=== PATIENT | female | born 1995 | race American Indian/Alaskan Native ===

== ENCOUNTER 2020-07-22 10:09 | Emergency (ER) | payer OTHER, MEDICAID, SELFPAY ==
[2020-07-22] VITALS (7 sets, daily range): BP systolic 105–123; BP diastolic 56–66; PULSE 79–129; RESP 18; TEMP 37.7–38.7; O2SAT 96–97; BMI 21.1
[2020-07-22] MEDS: KETOROLAC 60 MG/2 ML VIAL 15 MG IV (10:47)
[2020-07-22] MEDS: SODIUM CHLORIDE 0.9% 1,000 ML 1000 ML IV (10:47)
[2020-07-22 10:48] LABS: Add Manual Diff / Slide Review NO; Basophils Absolute Auto 0 /uL (0-100); Basophils Percent Auto 0.1 % (0-2); Eosinophils Absolute Auto 0 /uL (0-450); Hematocrit 39.3 % (36-46); Lymphocytes Absolute Auto 700 /uL (1100-4500); Lymphocytes Percent Auto 5.9 % (25-40); Mean Corpuscular HGB Conc 35.7 % (30-36); Mean Corpuscular Hemoglobin 31.1 PG (26-34); Mean Corpuscular Volume 87.1 fL (80-100); Monocytes Absolute Auto 1100 /uL (0-900); Neutrophils Absolute Auto 10100 /uL (1500-7000); Platelet Count 164 X10^3/uL (150-400); Red Blood Cell Count 4.51 X10^6/uL (4.0-5.2); Red Cell Distribution Width 12.5 % (11.6-14.8); White Blood Cell Count 11.9 X10^3/uL (4.5-11.0)
[2020-07-22 11:04] LABS: Bacteria Urine Few (2-10); Culture Indicated Urine Specimen Cultured; RBC Urine 5-10/HPF (0-5/HPF); Squamous Epithelial Cell Urine 0-1 /HPF (0-5/HPF); WBC Urine 10-30/HPF (0-5/HPF)
[2020-07-22 11:05] LABS: Alanine Aminotransferase 15 IU/L (<35); Albumin 4.4 g/dL (3.5-5.0); Albumin Globulin Ratio 1.4 (1.0-2.8); Alkaline Phosphatase 67 U/L (38-126); Aspartate Aminotransferase 23 IU/L (14-36); Blood Urea Nitrogen 9 mg/dL (7-17); Calcium 8.7 mg/dL (8.4-10.2); Carbon Dioxide 26 mmol/L (22-32); Chloride 103 mmol/L (98-107); Estimated Glomerular Filt Rate > 60.0 mL/min (>60); Globulin 3.2 g/dL (1.7-4.1); Glucose 133 mg/dL (70-100); HEMOLYSIS < 15 (0-50); Potassium 3.3 mmol/L (3.4-5.1); Sodium 134 mmol/L (137-145); Total Protein 7.6 g/dL (6.3-8.2)
--- NOTE | 2020-07-22 11:12 | ED.FEMALEGU ---
HPI - Female Genitourinary General Chief complaint: Urogenital-Female Stated complaint: bladder infection/UTI/fever 2 days/vomiting Time Seen by Provider: 07/22/20 10:31 Source: patient Mode of arrival: Ambulatory Limitations: no limitations History of Present Illness HPI Narrative: Patient is a 24-year-old female who presents with fever and bilateral flank pain. She says last week she started having painful frequent urination has progressed to back pain and fever. She says she developed a fever a few days ago. She has no radiation of pain. MD Complaint: dysuria and UTI Related Data Previous Rx's Medication Instructions Recorded sulfamethoxazole-trimethoprim 1 tab PO BID 7 Days #14 tab 07/22/20 [Bactrim DS] Allergies Allergy/AdvReac Type Severity Reaction Status Date / Time No Known Drug Allergies Allergy Verified 07/22/20 11:43 Review of Systems Review of Systems ROS Unobtainable: All systems reviewed & are unremarkable except as noted in HPI and below Constitutional Constitutional: Reports body ache(s), Reports chills, Reports fatigue and Reports fever(s) Eyes Eyes: Denies change in vision, Denies eye discharge, Denies irritation and Denies loss of vision Cardiovascular Cardiovascular: Denies chest pain, Denies irregular heart rhythm, Denies lightheadedness, Denies palpitations, Denies dyspnea, Denies dyspnea on exertion and Denies orthopnea Respiratory Respiratory: Denies cough, Denies dyspnea, Denies dyspnea on exertion and Denies wheezing Gastrointestinal Gastrointestinal: Denies abdominal pain, Denies change in bowel habits, Denies diarrhea, Denies nausea and Denies vomiting Genitourinary Genitourinary: Reports as per HPI Genitourinary: Reports as per HPI Musculoskeletal Musculoskeletal: Reports back pain, Reports myalgias and Reports myalgias Integumentary/Breasts Skin/Breast: Denies pruritus, Denies erythema, Denies rash and Denies wounds Neurologic Neurologic: Denies loss of vision Endocrine Endocrine: Reports fatigue and Denies palpitations Allergic/Immunologic Allergic/Immunologic: Denies wheezing Patient History alcohol intake frequency: holidays/special occasions only Substance Use Type: marijuana Exam Initial Vital Signs Initial Vital Signs: Vital Signs Temperature 101.7 F H 07/22/20 10:22 Pulse Rate 129 H 07/22/20 10:22 Respiratory Rate 18 07/22/20 10:22 Blood Pressure 123/66 07/22/20 10:22 Pulse Oximetry 96 07/22/20 10:22 GENERAL: Well-appearing, well-nourished and in no acute distress. HEENT: Head atraumatic,EOMI, pupils reactive, face symmetric, moist mucous membranes CARDIOVASCULAR: Tachycardic regular rhythm without murmurs, rubs or gallops. RESPIRATORY: Breath sounds equal bilaterally, no wheezes rales or rhonchi. ABDOMEN: Soft, nontender. Normoactive bowel sounds all 4 quadrants. No guarding or rebound. : Bilateral CVA tenderness EXTREMITIES: Normal range of motion, no clubbing or edema. Neurovascularly intact NEUROLOGICAL: Alert and oriented x4.Normal gait and speech. SKIN: Warm, dry, no laceration, no petechiae, no rashes or lesions. Course Orders Ordered: ED Orders 07/22/20 10:20 Urine Culture Stat Urine Microscopic Stat 07/22/20 10:30 Complete Blood Count AUTO DIFF Stat Comprehensive Metabolic Panel Stat Lactate (Lactic Acid) Stat Procalcitonin Stat 07/22/20 11:55 Blood Culture Stat Discontinued Medications Sodium Chloride (Normal Saline 0.9%) 1,000 mls @ 1,000 mls/hr IV BOLUS ONE Stop: 07/22/20 11:30 Last Infusion: 07/22/20 11:42 Dose: 0 mls/hr Documented by: JUAN PABLO Admin: 07/22/20 10:47 Dose: 1,000 mls/hr Documented by: CHA Ceftriaxone Sodium/Dextrose (Rocephin) 1 gm in 50 mls @ 100 mls/hr IV NOW ONE Stop: 07/22/20 11:45 Last Infusion: 07/22/20 12:17 Dose: 0 mls/hr Documented by: JUAN PABLO Admin: 07/22/20 12:00 Dose: 100 mls/hr Documented by: JUAN PABLO Ketorolac Tromethamine (Ketorolac 60 Mg/2 Ml Vial) 15 mg IV NOW ONE Stop: 07/22/20 10:32 Last Admin: 07/22/20 10:47 Dose: 15 mg Documented by: CHA Vital Signs Vital signs: Vital Signs - 8 hr 07/22/20 10:22 07/22/20 10:34 07/22/20 11:00 Temperature 101.7 F H Pulse Rate 129 H 111 H 107 H Respiratory Rate 18 Blood Pressure 123/66 110/64 118/56 L Pulse Oximetry 96 97 97 07/22/20 11:30 07/22/20 12:00 07/22/20 12:30 Temperature Pulse Rate 85 83 79 Respiratory Rate 18 Blood Pressure 106/58 L 105/57 L 108/60 Pulse Oximetry 96 97 96 07/22/20 12:56 Temperature 99.9 F H Pulse Rate Respiratory Rate Blood Pressure Pulse Oximetry MDM - Female Genitourinary Lab Data Attestation: I reviewed the patient's lab results. Result diagrams: 07/22/20 10:30 07/22/20 10:30 Labs: Lab Results 07/22/20 07/22/20 07/22/20 Range/Units 10:20 10:30 10:30 WBC 11.9 H (4.5-11.0) X10^3/uL RBC 4.51 (4.0-5.2) X10^6/uL Hgb 14.0 (12.0-16.0) g/dL Hct 39.3 (36-46) % MCV 87.1 (80-100) fL MCH 31.1 (26-34) PG MCHC 35.7 (30-36) % RDW 12.5 (11.6-14.8) % Plt Count 164 (150-400) X10^3/uL Neut % (Auto) 85.0 H (50-75) % Lymph % (Auto) 5.9 L (25-40) % [place] % (Auto) 9.0 (3-14) % Eos % (Auto) 0.0 L (2-4) % Baso % (Auto) 0.1 (0-2) % Neut # (Auto) 65983 H (2331-1512) /uL Lymph # (Auto) 700 L (6788-4709) /uL [place] # (Auto) 1100 H (0-900) /uL Eos # (Auto) 0 (0-450) /uL Baso # (Auto) 0 (0-100) /uL Sodium (137-145) mmol/L Potassium (3.4-5.1) mmol/L Chloride (98-107) mmol/L Carbon Dioxide (22-32) mmol/L BUN (7-17) mg/dL Creatinine (0.52-1.04) mg/dL Estimated GFR (>60) mL/min BUN/Creatinine Ratio (6-22) Glucose (70-100) mg/dL Lactate (0.7-2.1) mmol/L Calcium (8.4-10.2) mg/dL Total Bilirubin (0.2-1.3) mg/dL AST (14-36) IU/L ALT (<35) IU/L Alkaline Phosphatase (38-126) U/L Total Protein (6.3-8.2) g/dL Albumin (3.5-5.0) g/dL Globulin (1.7-4.1) g/dL Albumin/Globulin Ratio (1.0-2.8) Procalcitonin 0.27 (<0.5) ng/mL Urine RBC 5-10/hpf H (0-5/HPF) Urine WBC 10-30/hpf H (0-5/HPF) Ur Squamous Epith Cells 0-1 /hpf (0-5/HPF) Urine Bacteria Few (2-10) H (None) Ur Culture Indicated? Specimen cultured 07/22/20 07/22/20 Range/Units 10:30 10:30 WBC (4.5-11.0) X10^3/uL RBC (4.0-5.2) X10^6/uL Hgb (12.0-16.0) g/dL Hct (36-46) % MCV (80-100) fL MCH (26-34) PG MCHC (30-36) % RDW (11.6-14.8) % Plt Count (150-400) X10^3/uL Neut % (Auto) (50-75) % Lymph % (Auto) (25-40) % [place] % (Auto) (3-14) % Eos % (Auto) (2-4) % Baso % (Auto) (0-2) % Neut # (Auto) (4270-1564) /uL Lymph # (Auto) (8815-3154) /uL [place] # (Auto) (0-900) /uL Eos # (Auto) (0-450) /uL Baso # (Auto) (0-100) /uL Sodium 134 L (137-145) mmol/L Potassium 3.3 L (3.4-5.1) mmol/L Chloride 103 (98-107) mmol/L Carbon Dioxide 26 (22-32) mmol/L BUN 9 (7-17) mg/dL Creatinine 0.75 (0.52-1.04) mg/dL Estimated GFR > 60.0 (>60) mL/min BUN/Creatinine Ratio 12.0 (6-22) Glucose 133 H (70-100) mg/dL Lactate 1.0 (0.7-2.1) mmol/L Calcium 8.7 (8.4-10.2) mg/dL Total Bilirubin 2.0 H (0.2-1.3) mg/dL AST 23 (14-36) IU/L ALT 15 (<35) IU/L Alkaline Phosphatase 67 (38-126) U/L Total Protein 7.6 (6.3-8.2) g/dL Albumin 4.4 (3.5-5.0) g/dL Globulin 3.2 (1.7-4.1) g/dL Albumin/Globulin Ratio 1.4 (1.0-2.8) Procalcitonin (<0.5) ng/mL Urine RBC (0-5/HPF) Urine WBC (0-5/HPF) Ur Squamous Epith Cells (0-5/HPF) Urine Bacteria (None) Ur Culture Indicated? Point of Care Testing Test Results Negative Urine Dip Bedside Urine Glucose Negative Bedside Urine Bilirubin - Negative Bedside Urine Ketone +++ 80 Urine Specific [place] 1.015 Bedside Urine Occult Blood ++ Bedside Urine pH 6.0 Bedside Urine Protein + 30 Bedside Urine Urobilinogen - Negative Bedside Urine Nitrite - Negative Bedside Urine Leukocytes + 70 Esterase MDM Narrative Medical decision making narrative: Patient initially tachycardic and febrile needing as sepsis and SIRS criteria. She does have UTI and likely pyelonephritis. Heart rate improved with fever control and IV fluids. She is given 1 dose of IV antibiotics. She has a normal lactate and a mildly elevated procalcitonin. At this time she overall appears well and can be managed outpatient. Discharge Plan Departure Patient Disposition: Home Clinical Impression: Urinary tract infection Qualifiers: Urinary tract infection type: acute pyelonephritis Qualified Code(s): N10 - Acute pyelonephritis Instructions: DI for Kidney Infection Activity Restrictions/Additional Instructions: *You have been diagnosed with kidney infection *What to do: You have a kidney infection. Stay hydrated and fever control with Tylenol and or ibuprofen *Continue to take medications as directed Tylenol 1000 mg every 6 hours do not exceed more than 4000 mg in 24 hours Ibuprofen 800 mg every 8 hours Bactrim 1 tablet twice a day for 7 days *Follow up with your primary care provider in 2-3 days *Return to ER if you should have not able to keep fluids in, increasing pain, fever not controlled, confusion or any new, worsening or concerning symptoms Prescriptions: New sulfamethoxazole-trimethoprim [Bactrim DS] 800-160 mg tablet 1 tab PO BID 7 Days Qty: 14 RF: 0
[2020-07-22 11:17] LABS: Procalcitonin 0.27 ng/mL (<0.5)
[2020-07-22] MEDS: CEFTRIAXONE 1 GM/50 ML FROZ.PIGGY IV (12:00)
[2020-07-23 08:04] LABS: Enterococcus species Not Detected (Not Detect); Listeria monocytogenes Not Detected (Not Detect); Staphylococcus species Not Detected (Not Detect)
[2020-07-23 08:05] LABS: Acinetobacter baumannii Not Detected (Not Detect); Candida albicans Not Detected (Not Detect); Candida glabrata Not Detected (Not Detect); Candida krusei Not Detected (Not Detect); Candida parapsilosis Not Detected (Not Detect); Candida tropicalis Not Detected (Not Detect); E. coli Detected (Not Detect); Enterobacter cloacae complex Not Detected (Not Detect); Enterobacteriaceae species Detected (Not Detect); Haemophilus influenzae Not Detected (Not Detect); KPC (carbapenem-resist gene) Not Detected (Not Detect); Neisseria meningitidis Not Detected (Not Detect); Proteus species Not Detected (Not Detect); Pseudomonas aeruginosa Not Detected (Not Detect); Serratia marcescens Not Detected (Not Detect); Streptococcus agalactiae (Gr B Not Detected (Not Detect); Streptococcus pneumonia Not Detected (Not Detect); Streptococcus pyogenes (Gr A) Not Detected (Not Detect); Streptococcus species Not Detected (Not Detect)
== END 2020-07-22 12:56 | disposition home or self-care (01) ==
PROVIDERS: Emergency Provider Emergency Medicine; Family Provider Pediatrics
DX: N39.0 Urinary tract infection, site not specified (principal); R10.9 Unspecified abdominal pain; N10 Acute pyelonephritis
CPT/HCPCS: 36415; 80053; 81003; 81015; 81025; 83605; 84145; 85025; 87040; 87077; 87086; 87150; 87205; 99281; J1885

== ENCOUNTER 2020-07-23 12:21 | Observation (INO) | payer OTHER, MEDICAID, SELFPAY ==
[2020-07-23] VITALS (17 sets, daily range): BP systolic 106–129; BP diastolic 53–67; PULSE 62–103; RESP 14–16; TEMP 36.6–37.7; O2SAT 96–100; BMI 23.6
[2020-07-23 12:54] LABS: Add Manual Diff / Slide Review NO; Basophils Absolute Auto 0 /uL (0-100); Basophils Percent Auto 0.3 % (0-2); Eosinophils Absolute Auto 0 /uL (0-450); Hematocrit 40.4 % (36-46); Hemoglobin 14.4 g/dL (12.0-16.0); Lymphocytes Absolute Auto 1200 /uL (1100-4500); Lymphocytes Percent Auto 11.2 % (25-40); Mean Corpuscular HGB Conc 35.6 % (30-36); Mean Corpuscular Hemoglobin 31.2 PG (26-34); Mean Corpuscular Volume 87.6 fL (80-100); Monocytes Absolute Auto 1100 /uL (0-900); Monocytes Percent Auto 10.4 % (3-14); Neutrophils Absolute Auto 8100 /uL (1500-7000); Neutrophils Percent Auto 78.1 % (50-75); Platelet Count 141 X10^3/uL (150-400); Red Blood Cell Count 4.61 X10^6/uL (4.0-5.2); Red Cell Distribution Width 12.4 % (11.6-14.8); White Blood Cell Count 10.3 X10^3/uL (4.5-11.0)
[2020-07-23] MEDS: MORPHINE 4 MG/ML INJ IV (13:03)
[2020-07-23] MEDS: SODIUM CHLORIDE 0.9% 1,000 ML 1000 ML IV (13:03)
[2020-07-23] MEDS: ONDANSETRON 4 MG/2 ML INJ IV ×2 (13:03→23:34)
[2020-07-23 13:04] LABS: Alanine Aminotransferase 15 IU/L (<35); Albumin 4.2 g/dL (3.5-5.0); Albumin Globulin Ratio 1.3 (1.0-2.8); Alkaline Phosphatase 58 U/L (38-126); Aspartate Aminotransferase 21 IU/L (14-36); Bilirubin Total 1.9 mg/dL (0.2-1.3); Blood Urea Nitrogen 7 mg/dL (7-17); Calcium 8.9 mg/dL (8.4-10.2); Carbon Dioxide 28 mmol/L (22-32); Chloride 105 mmol/L (98-107); Estimated Glomerular Filt Rate > 60.0 mL/min (>60); Globulin 3.3 g/dL (1.7-4.1); Glucose 108 mg/dL (70-100); HEMOLYSIS < 15 (0-50); Lactate (Lactic Acid) 1.2 mmol/L (0.7-2.1); Magnesium 2.3 mg/dL (1.6-2.3); Potassium 3.2 mmol/L (3.4-5.1); Sodium 139 mmol/L (137-145); Total Protein 7.5 g/dL (6.3-8.2)
[2020-07-23 13:19] LABS: Procalcitonin 0.41 ng/mL (<0.5)
[2020-07-23 13:39] LABS: Bacteria Urine Few (2-10); Culture Indicated Urine Specimen Cultured; Mucus Urine 1+ (Negative); RBC Urine 1-5/HPF (0-5/HPF); Squamous Epithelial Cell Urine 1-5 /HPF (0-5/HPF); WBC Urine 5-10/HPF (0-5/HPF)
[2020-07-23 13:42] LABS: COVID19 -Nasal RAPID Negative (Negative)
--- NOTE | 2020-07-23 13:47 | ED.RECABL ---
HPI - Recheck/Abnormal Lab/Rx <ASHLY Chamberlain - Last Filed: 07/23/20 15:44> General Chief Complaint: Recheck/Abnormal Lab/Rx Stated Complaint: abnormal bloodwork Time Seen by Provider: 07/23/20 12:29 Source: patient Mode of arrival: Ambulatory Limitations: no limitations History of Present Illness HPI narrative: The patient is a 24-year-old female with no pertinent medical history presents with a chief complaint of an abnormal lab. She was seen here yesterday and diagnosed with pyelonephritis. She states she developed urinary tract comes in the dysuria urgency and frequency approximately 7 days ago. About 3 days ago she started developing fever muscle aches and chills. She has seen and evaluated in this emergency department yesterday, given IV Rocephin and IV fluids. She was noted to have a blood culture positive for E coli, so she was called back to the emergency department. She states that her flank pain, muscle aches and chills have worsened since yesterday. After she was discharged yesterday she was vomiting repeatedly and still complains of nausea this morning. She states that her flank pain is worse on the left side than on the right side Related Data Allergies Allergy/AdvReac Type Severity Reaction Status Date / Time No Known Drug Allergies Allergy Verified 07/22/20 11:43 Review of Systems <ASHLY Chamberlain - Last Filed: 07/23/20 15:44> Review of Systems Narrative: GENERAL: Denies chills, fatigue, malaise, fever, sweats. HEENT: Denies sinus pain, ear pain, sore throat, difficulty swallowing, dizziness. RESPIRATORY: Denies dyspnea, cough, wheezing, hemoptysis, sputum. CARDIOVASCULAR: Denies chest pain, palpitations, orthopnea, edema, GASTROINTESTINAL: See HPI : See HPI MUSCULOSKELETAL: denies weakness, joint pain, or bony pain SKIN: Denies rash, skin lesions, or other NEUROLOGIC: Denies weakness, headache, numbness, change in speech, confusion, seizures, incoordination. PSYCHIATRIC: No concerning psychosocial issues. 12 point review of systems is negative except for those stated above Patient History <ASHLY Chamberlain - Last Filed: 07/23/20 15:44> Medical History (Updated 07/23/20 @ 18:43 by Jasmyne Looney DO) No pertinent past medical history Surgical History (Updated 07/23/20 @ 18:43 by Jasmyne Looney DO) No pertinent past surgical history Family History (Updated 07/23/20 @ 18:44 by Jasmyne Looney DO) Father Diabetes mellitus Mother Healthy adult Brother Healthy adult Sister Healthy adult Social History household members: significant other Smoking Status: Never smoker Smoking Status: Never smoker alcohol intake frequency: holidays/special occasions only Substance Use Type: marijuana Exam <ASHLY Chamberlain - Last Filed: 07/23/20 15:44> Narrative Exam Narrative: GENERAL: This is a well-nourished, well-developed patient, in no acute distress appears fatigued HEAD: Atraumatic. Normocephalic. No temporal or scalp tenderness. EYES: Pupils equal round and reactive. Extraocular motions intact. No scleral icterus. No injection or drainage. ENT: Nose without bleeding, purulent drainage or septal hematoma. Wearing mask. Airway patent. NECK: Trachea midline. No JVD or lymphadenopathy. Supple, nontender, no meningeal signs. CARDIOVASCULAR: Regular rate and rhythm RESPIRATORY: Clear to auscultation. Breath sounds equal bilaterally. No wheezes, rales, or rhonchi. No cough. No increased respiratory effort. No accessory muscle use. GASTROINTESTINAL: Abdomen soft, non-tender, nondistended. No hepato-splenomegaly, or palpable masses. No guarding. Active bowel sounds all quadrants EXTREMITIES: No clubbing, cyanosis, or edema. No joint tenderness, effusion, or edema noted. BACK: Nontender without deformity or crepitance. CVA tenderness noted bilaterally, left worse than right NEURO: AOx3. SKIN: No rash or erythema on visible skin Initial Vital Signs Initial Vital Signs: Vital Signs Temperature 99.7 F H 07/23/20 12:37 Pulse Rate 99 H 07/23/20 12:37 Respiratory Rate 16 07/23/20 12:37 Blood Pressure 129/67 07/23/20 12:37 Pulse Oximetry 100 07/23/20 12:37 <Anamaria Hobbs DO - Last Filed: 07/24/20 07:14> Initial Vital Signs Initial Vital Signs: Vital Signs Temperature 99.7 F H 07/23/20 12:37 Pulse Rate 99 H 07/23/20 12:37 Respiratory Rate 16 07/23/20 12:37 Blood Pressure 129/67 07/23/20 12:37 Pulse Oximetry 100 07/23/20 12:37 Scores <ASHLY Chamberlain - Last Filed: 07/23/20 15:44> GCS [place] coma scale eye opening: Spontaneous [place] coma scale verbal response: Orientated [place] coma scale motor response: Obey commands [place] coma scale total score: 15 Course <ASHLY Chamberlain - Last Filed: 07/23/20 15:44> Orders Ordered: Acetaminophen (Acetaminophen 325 Mg Tablet) 650 mg PO Q6HR PRN PRN Reason: Fever/Mild Pain (1-3) Last Admin: 07/23/20 21:17 Dose: 650 mg Documented by: ANGELIA Al Hydrox/Mg Hydrox/Simethicone (Mag Hydrox/Alum/Simeth 30 Ml Udc) 30 ml PO Q6HR PRN PRN Reason: Dyspepsia Bisacodyl (Bisacodyl 10 Mg Supp) 10 mg [place] DAILY PRN PRN Reason: Constipation Calcium Carbonate (Calcium Carbonate 500 Mg Tab) 1,000 mg PO Q4HR PRN PRN Reason: Dyspepsia Last Admin: 07/23/20 23:28 Dose: 1,000 mg Documented by: TARIQ Heparin Sodium (Porcine) (Heparin 5,000 Unit/Ml Vial) 5,000 unit SUBCUT BID [facility] Last Admin: 07/23/20 21:17 Dose: Not Given Documented by: ANGELIA Sodium Chloride (Normal Saline 0.9%) 1,000 mls @ 100 mls/hr IV CONT JOESPH Last Admin: 07/24/20 03:01 Dose: 100 mls/hr Documented by: Infusion: 07/24/20 02:26 Dose: 100 mls/hr Documented by: Admin: 07/23/20 16:26 Dose: 100 mls/hr Documented by: MARIA DE JESUS Ceftriaxone Sodium/Dextrose (Rocephin) 2 gm in 50 mls @ 100 mls/hr IV Q24H [facility] Ketorolac Tromethamine (Ketorolac 30 Mg/Ml Vial) 30 mg IV Q6HR PRN PRN Reason: Pain, Mild (1-3) Stop: 07/28/20 16:56 Last Admin: 07/23/20 23:27 Dose: 30 mg Documented by: Admin: 07/23/20 17:38 Dose: 30 mg Documented by: MARIA DE JESUS Magnesium Hydroxide (Magnesium Hydroxide 30 Ml Udc) 30 ml PO DAILY PRN PRN Reason: Constipation Naloxone HCl (Naloxone 0.4 Mg/Ml Vial) 0.2 mg IV Q2MIN PRN PRN Reason: Opiate Reversal Ondansetron HCl (Ondansetron 4 Mg/2 Ml Inj) 4 mg IV Q8HR PRN PRN Reason: Nausea And Vomiting Last Admin: 07/23/20 23:34 Dose: 4 mg Documented by: TARIQ Promethazine HCl (Promethazine 12.5 Mg Supp) 12.5 mg [place] Q6HR PRN PRN Reason: Nausea And Vomiting Tramadol HCl (Tramadol 50 Mg Tablet) 50 mg PO QID PRN PRN Reason: Pain, Moderate (4-6) Discontinued Medications Acetaminophen (Acetaminophen 325 Mg Tablet) 650 mg PO NOW ONE Stop: 07/23/20 14:16 Last Admin: 07/23/20 14:29 Dose: 650 mg Documented by: CHA Sodium Chloride (Normal Saline 0.9%) 1,000 mls @ 1,000 mls/hr IV BOLUS ONE Stop: 07/23/20 13:28 Last Infusion: 07/23/20 15:58 Dose: 100 mls/hr Documented by: Infusion: 07/23/20 15:57 Dose: 100 mls/hr Documented by: Admin: 07/23/20 13:03 Dose: 1,000 mls/hr Documented by: CHA Sodium Chloride (Normal Saline 0.9%) 1,000 mls @ 1,000 mls/hr IV BOLUS ONE Stop: 07/23/20 13:50 Last Infusion: 07/23/20 14:29 Dose: 0 mls/hr Documented by: Admin: 07/23/20 14:28 Dose: 100 mls/hr Documented by: CAH Ceftriaxone Sodium/Dextrose (Rocephin) 1 gm in 50 mls @ 100 mls/hr IV NOW ONE Stop: 07/23/20 14:45 Last Infusion: 07/23/20 15:29 Dose: 0 mls/hr Documented by: Admin: 07/23/20 14:28 Dose: 100 mls/hr Documented by: CHA Ceftriaxone Sodium/Dextrose (Rocephin) 1 gm in 50 mls @ 100 mls/hr IV NOW ONE Stop: 07/23/20 17:27 Last Admin: 07/23/20 17:38 Dose: 100 mls/hr Documented by: MARIA DE JESUS Influenza Virus Vaccine (Influenza Vaccine 0.5 Ml Syringe) 0.5 ml IM .ONCE ONE Stop: 07/23/20 16:24 Last Admin: 07/23/20 17:37 Dose: 0.5 ml Documented by: MARIA DE JESUS Morphine Sulfate (Morphine 4 Mg/Ml Inj) 4 mg IV NOW ONE Stop: 07/23/20 12:52 Last Admin: 07/23/20 13:03 Dose: 4 mg Documented by: CHA Ondansetron HCl (Ondansetron 4 Mg/2 Ml Inj) 4 mg IV NOW ONE Stop: 07/23/20 12:52 Last Admin: 07/23/20 13:03 Dose: 4 mg Documented by: CHA Potassium Chloride (Potassium Chloride 20 Meq Tab) 40 meq PO NOW ONE Stop: 07/23/20 15:58 Last Admin: 07/23/20 17:36 Dose: 40 meq Documented by: MARIA DE JESUS Vital Signs Vital signs: Vital Signs - 8 hr 07/23/20 12:37 07/23/20 13:05 07/23/20 13:07 Temperature 99.7 F H Pulse Rate 99 H 96 H 103 H Respiratory Rate 16 Blood Pressure 129/67 110/57 L Pulse Oximetry 100 96 100 07/23/20 13:09 07/23/20 13:30 07/23/20 14:00 Temperature Pulse Rate 88 85 79 Respiratory Rate Blood Pressure 119/61 114/59 L 121/56 L Pulse Oximetry 100 99 100 07/23/20 14:30 07/23/20 14:57 07/23/20 15:00 Temperature Pulse Rate 80 83 83 Respiratory Rate Blood Pressure 117/62 112/55 L 115/57 L Pulse Oximetry 99 99 99 <Anamaria Hobbs DO - Last Filed: 07/24/20 07:14> Orders Ordered: Acetaminophen (Acetaminophen 325 Mg Tablet) 650 mg PO Q6HR PRN PRN Reason: Fever/Mild Pain (1-3) Last Admin: 07/23/20 21:17 Dose: 650 mg Documented by: ANGELIA Al Hydrox/Mg Hydrox/Simethicone (Mag Hydrox/Alum/Simeth 30 Ml Udc) 30 ml PO Q6HR PRN PRN Reason: Dyspepsia Bisacodyl (Bisacodyl 10 Mg Supp) 10 mg [place] DAILY PRN PRN Reason: Constipation Calcium Carbonate (Calcium Carbonate 500 Mg Tab) 1,000 mg PO Q4HR PRN PRN Reason: Dyspepsia Last Admin: 07/23/20 23:28 Dose: 1,000 mg Documented by: TARIQ Heparin Sodium (Porcine) (Heparin 5,000 Unit/Ml Vial) 5,000 unit SUBCUT BID [facility] Last Admin: 07/23/20 21:17 Dose: Not Given Documented by: ANGELIA Sodium Chloride (Normal Saline 0.9%) 1,000 mls @ 100 mls/hr IV CONT [facility] Last Admin: 07/24/20 03:01 Dose: 100 mls/hr Documented by: Infusion: 07/24/20 02:26 Dose: 100 mls/hr Documented by: Admin: 07/23/20 16:26 Dose: 100 mls/hr Documented by: MARIA DE JESUS Ceftriaxone Sodium/Dextrose (Rocephin) 2 gm in 50 mls @ 100 mls/hr IV Q24H [facility] Ketorolac Tromethamine (Ketorolac 30 Mg/Ml Vial) 30 mg IV Q6HR PRN PRN Reason: Pain, Mild (1-3) Stop: 07/28/20 16:56 Last Admin: 07/23/20 23:27 Dose: 30 mg Documented by: Admin: 07/23/20 17:38 Dose: 30 mg Documented by: MARIA DE JESUS Magnesium Hydroxide (Magnesium Hydroxide 30 Ml Udc) 30 ml PO DAILY PRN PRN Reason: Constipation Naloxone HCl (Naloxone 0.4 Mg/Ml Vial) 0.2 mg IV Q2MIN PRN PRN Reason: Opiate Reversal Ondansetron HCl (Ondansetron 4 Mg/2 Ml Inj) 4 mg IV Q8HR PRN PRN Reason: Nausea And Vomiting Last Admin: 07/23/20 23:34 Dose: 4 mg Documented by: TARIQ Promethazine HCl (Promethazine 12.5 Mg Supp) 12.5 mg [place] Q6HR PRN PRN Reason: Nausea And Vomiting Tramadol HCl (Tramadol 50 Mg Tablet) 50 mg PO QID PRN PRN Reason: Pain, Moderate (4-6) Discontinued Medications Acetaminophen (Acetaminophen 325 Mg Tablet) 650 mg PO NOW ONE Stop: 07/23/20 14:16 Last Admin: 07/23/20 14:29 Dose: 650 mg Documented by: CHA Sodium Chloride (Normal Saline 0.9%) 1,000 mls @ 1,000 mls/hr IV BOLUS ONE Stop: 07/23/20 13:28 Last Infusion: 07/23/20 15:58 Dose: 100 mls/hr Documented by: Infusion: 07/23/20 15:57 Dose: 100 mls/hr Documented by: Admin: 07/23/20 13:03 Dose: 1,000 mls/hr Documented by: CHA Sodium Chloride (Normal Saline 0.9%) 1,000 mls @ 1,000 mls/hr IV BOLUS ONE Stop: 07/23/20 13:50 Last Infusion: 07/23/20 14:29 Dose: 0 mls/hr Documented by: Admin: 07/23/20 14:28 Dose: 100 mls/hr Documented by: CHA Ceftriaxone Sodium/Dextrose (Rocephin) 1 gm in 50 mls @ 100 mls/hr IV NOW ONE Stop: 07/23/20 14:45 Last Infusion: 07/23/20 15:29 Dose: 0 mls/hr Documented by: Admin: 07/23/20 14:28 Dose: 100 mls/hr Documented by: CHA Ceftriaxone Sodium/Dextrose (Rocephin) 1 gm in 50 mls @ 100 mls/hr IV NOW ONE Stop: 07/23/20 17:27 Last Admin: 07/23/20 17:38 Dose: 100 mls/hr Documented by: MARIA DE JESUS Influenza Virus Vaccine (Influenza Vaccine 0.5 Ml Syringe) 0.5 ml IM .ONCE ONE Stop: 07/23/20 16:24 Last Admin: 07/23/20 17:37 Dose: 0.5 ml Documented by: MARIA DE JESUS Morphine Sulfate (Morphine 4 Mg/Ml Inj) 4 mg IV NOW ONE Stop: 07/23/20 12:52 Last Admin: 07/23/20 13:03 Dose: 4 mg Documented by: CHA Ondansetron HCl (Ondansetron 4 Mg/2 Ml Inj) 4 mg IV NOW ONE Stop: 07/23/20 12:52 Last Admin: 07/23/20 13:03 Dose: 4 mg Documented by: CHA Potassium Chloride (Potassium Chloride 20 Meq Tab) 40 meq PO NOW ONE Stop: 07/23/20 15:58 Last Admin: 07/23/20 17:36 Dose: 40 meq Documented by: CWHITE Vital Signs Vital signs: Vital Signs - 8 hr 07/23/20 12:37 07/23/20 13:05 07/23/20 13:07 Temperature 99.7 F H Pulse Rate 99 H 96 H 103 H Respiratory Rate 16 Blood Pressure 129/67 110/57 L Pulse Oximetry 100 96 100 07/23/20 13:09 07/23/20 13:30 07/23/20 14:00 Temperature Pulse Rate 88 85 79 Respiratory Rate Blood Pressure 119/61 114/59 L 121/56 L Pulse Oximetry 100 99 100 07/23/20 14:30 07/23/20 14:57 07/23/20 15:00 Temperature Pulse Rate 80 83 83 Respiratory Rate Blood Pressure 117/62 112/55 L 115/57 L Pulse Oximetry 99 99 99 [facility] - Recheck/Abnormal Lab/Rx <ARNAV Chamberlain - Last Filed: 07/23/20 15:44> Lab Data Result diagrams: 07/24/20 05:24 07/24/20 05:24 Labs: Lab Results 07/23/20 07/23/20 07/23/20 Range/Units 12:40 12:40 12:40 WBC (4.5-11.0) X10^3/uL RBC (4.0-5.2) X10^6/uL Hgb (12.0-16.0) g/dL Hct (36-46) % MCV (80-100) fL MCH (26-34) PG MCHC (30-36) % RDW (11.6-14.8) % Plt Count (150-400) X10^3/uL Neut % (Auto) (50-75) % Lymph % (Auto) (25-40) % [place] % (Auto) (3-14) % Eos % (Auto) (2-4) % Baso % (Auto) (0-2) % Neut # (Auto) (9456-5806) /uL Lymph # (Auto) (5754-6307) /uL [place] # (Auto) (0-900) /uL Eos # (Auto) (0-450) /uL Baso # (Auto) (0-100) /uL Sodium (137-145) mmol/L Potassium (3.4-5.1) mmol/L Chloride (98-107) mmol/L Carbon Dioxide (22-32) mmol/L BUN (7-17) mg/dL Creatinine (0.52-1.04) mg/dL Estimated GFR (>60) mL/min BUN/Creatinine Ratio (6-22) Glucose (70-100) mg/dL Lactate 1.2 (0.7-2.1) mmol/L Calcium (8.4-10.2) mg/dL Magnesium 2.3 (1.6-2.3) mg/dL Total Bilirubin (0.2-1.3) mg/dL AST (14-36) IU/L ALT (<35) IU/L Alkaline Phosphatase (38-126) U/L Total Protein (6.3-8.2) g/dL Albumin (3.5-5.0) g/dL Globulin (1.7-4.1) g/dL Albumin/Globulin Ratio (1.0-2.8) Procalcitonin 0.41 (<0.5) ng/mL Urine RBC (0-5/HPF) Urine WBC (0-5/HPF) Ur Squamous Epith Cells (0-5/HPF) Urine Bacteria (None) Urine Mucus (Negative) Ur Culture Indicated? Urine Test (Negative) COVID-19 PCR (Negative) 07/23/20 07/23/20 07/23/20 Range/Units 12:40 12:40 13:00 WBC 10.3 (4.5-11.0) X10^3/uL RBC 4.61 (4.0-5.2) X10^6/uL Hgb 14.4 (12.0-16.0) g/dL Hct 40.4 (36-46) % MCV 87.6 (80-100) fL MCH 31.2 (26-34) PG MCHC 35.6 (30-36) % RDW 12.4 (11.6-14.8) % Plt Count 141 L (150-400) X10^3/uL Neut % (Auto) 78.1 H (50-75) % Lymph % (Auto) 11.2 L (25-40) % [place] % (Auto) 10.4 (3-14) % Eos % (Auto) 0.0 L (2-4) % Baso % (Auto) 0.3 (0-2) % Neut # (Auto) 8100 H (0358-5030) /uL Lymph # (Auto) 1200 (3149-1230) /uL [place] # (Auto) 1100 H (0-900) /uL Eos # (Auto) 0 (0-450) /uL Baso # (Auto) 0 (0-100) /uL Sodium 139 (137-145) mmol/L Potassium 3.2 L (3.4-5.1) mmol/L Chloride 105 (98-107) mmol/L Carbon Dioxide 28 (22-32) mmol/L BUN 7 (7-17) mg/dL Creatinine 0.78 (0.52-1.04) mg/dL Estimated GFR > 60.0 (>60) mL/min BUN/Creatinine Ratio 9.0 (6-22) Glucose 108 H (70-100) mg/dL Lactate (0.7-2.1) mmol/L Calcium 8.9 (8.4-10.2) mg/dL Magnesium (1.6-2.3) mg/dL Total Bilirubin 1.9 H (0.2-1.3) mg/dL AST 21 (14-36) IU/L ALT 15 (<35) IU/L Alkaline Phosphatase 58 (38-126) U/L Total Protein 7.5 (6.3-8.2) g/dL Albumin 4.2 (3.5-5.0) g/dL Globulin 3.3 (1.7-4.1) g/dL Albumin/Globulin Ratio 1.3 (1.0-2.8) Procalcitonin (<0.5) ng/mL Urine RBC 1-5/hpf (0-5/HPF) Urine WBC 5-10/hpf H (0-5/HPF) Ur Squamous Epith Cells 1-5 /hpf (0-5/HPF) Urine Bacteria Few (2-10) H (None) Urine Mucus 1+ H (Negative) Ur Culture Indicated? Specimen cultured Urine Test (Negative) COVID-19 PCR (Negative) 07/23/20 07/23/20 Range/Units 13:00 13:15 WBC (4.5-11.0) X10^3/uL RBC (4.0-5.2) X10^6/uL Hgb (12.0-16.0) g/dL Hct (36-46) % MCV (80-100) fL MCH (26-34) PG MCHC (30-36) % RDW (11.6-14.8) % Plt Count (150-400) X10^3/uL Neut % (Auto) (50-75) % Lymph % (Auto) (25-40) % [place] % (Auto) (3-14) % Eos % (Auto) (2-4) % Baso % (Auto) (0-2) % Neut # (Auto) (5318-8773) /uL Lymph # (Auto) (4671-4425) /uL [place] # (Auto) (0-900) /uL Eos # (Auto) (0-450) /uL Baso # (Auto) (0-100) /uL Sodium (137-145) mmol/L Potassium (3.4-5.1) mmol/L Chloride (98-107) mmol/L Carbon Dioxide (22-32) mmol/L BUN (7-17) mg/dL Creatinine (0.52-1.04) mg/dL Estimated GFR (>60) mL/min BUN/Creatinine Ratio (6-22) Glucose (70-100) mg/dL Lactate (0.7-2.1) mmol/L Calcium (8.4-10.2) mg/dL Magnesium (1.6-2.3) mg/dL Total Bilirubin (0.2-1.3) mg/dL AST (14-36) IU/L ALT (<35) IU/L Alkaline Phosphatase (38-126) U/L Total Protein (6.3-8.2) g/dL Albumin (3.5-5.0) g/dL Globulin (1.7-4.1) g/dL Albumin/Globulin Ratio (1.0-2.8) Procalcitonin (<0.5) ng/mL Urine RBC (0-5/HPF) Urine WBC (0-5/HPF) Ur Squamous Epith Cells (0-5/HPF) Urine Bacteria (None) Urine Mucus (Negative) Ur Culture Indicated? Urine Test Negative (Negative) COVID-19 PCR Negative (Negative) Point of Care Testing Test Results Negative Urine Dip Bedside Urine Glucose Negative Bedside Urine Bilirubin - Negative Bedside Urine Ketone +++ 80 Urine Specific [place] 1.025 Bedside Urine Occult Blood ++ Bedside Urine pH 6.0 Bedside Urine Protein +/- 15 Bedside Urine Urobilinogen - Negative Bedside Urine Nitrite - Negative Bedside Urine Leukocytes - Negative Esterase Imaging Data CT scan - abdomen/pelvis: Radiologist's Impression: [address] [place] [address] [id number] Scan ReportSigned Patient: Armond Bernard MMR#: [id number]: 1995Acct:[id number]/Sex: 24 / FDate of Service: 07/23/20Loc: EDAccession Number: [id number] Procedure: CT kidney ureter bladder (KUB) Ordering Provider: Ritika Dutton PROCEDURE: CT KIDNEY URETER BLADDER (KUB) INDICATIONS: pylo TECHNIQUE: Noncontrast 5 mm thick sections acquired from the diaphragms to the symphysis. 5 mm thick coronal and sagittal reformats were then performed. For radiation dose reduction, the following was used: automated exposure control, adjustment of mA and/or kV according to patient size. COMPARISON: [facility], CT, CT ABDOMEN PELVIS WITH CONTRAST, 11/24/2017, 0:29. FINDINGS: Image quality: Excellent. Lung bases: Lung bases are clear. Heart size is normal. Urinary system: Both kidneys are normal in size. No kidney stones. No hydronephrosis. There is mild left-sided perinephric inflammation. Both ureters appear non-dilated throughout their expected courses. Bladder wall thickness is normal; no calcified bladder stones. Other solid organs: Liver is normal in size. Gallbladder is unremarkable. Pancreas is normal in contours. Spleen is normal in size. No adrenal nodules. Peritoneum and bowel: Unenhanced bowel loops demonstrate normal wall thickness and caliber. No free fluid or air. Nodes and vessels: No retroperitoneal or mesenteric adenopathy by size criteria. Aorta and inferior vena cava are normal in caliber. Abdominal wall: No ventral hernias. Pelvis: No free pelvic fluid. No inguinal hernias or adenopathy. IUD is noted in place within the uterus. Incidental note of a right-sided Bartholin's cyst, unchanged. Bones: Incidental note of transitional type anatomy at the lumbosacral junction with pseudoarticulation on the right which may be a source of chronic pain. No suspicious bony lesions. No vertebral body compression fractures. IMPRESSION: No urinary tract calcifications or evidence of an obstructive uropathy. There is very mild left perinephric inflammation which may be seen in the setting of an infectious process. Otherwise, no evidence of an acute intra-abdominal/pelvic abnormality. Dictated by: Abilio Munroe D.O. on 07/23/2020 at 14:11 Approved by: Abilio Munroe D.O. on 07/23/2020 at 14:18 [facility] Narrative Medical decision making narrative: The patient is a 24-year-old female who presents to the emergency department with a chief complaint of positive blood cultures from her visit yesterday. She has pyelonephritis, was discharged on Bactrim after given 1 g Rocephin in the emergency department. Today she states her symptoms feel slightly worse, she was vomiting yesterday though not today, worsening CVA tenderness muscle aches and chills. Repeat lab work was done, repeat blood cultures were taken and repeat urinalysis done. Her blood cultures were positive for E coli yesterday. I continued her Rocephin in the emergency department at a 2nd dose at 12:00 p.m.. She was given IV fluids, Zofran morphine and Toradol. Given that she has positive blood cultures, I spoke with Dr. Looney who kindly agreed to admit the patient for inpatient admission pending a CT KUB to rule out obstructive cause a flank pain. This came back negative for any obstructive uropathy, though she does have perinephric Inflammation on the left side. The patient is negative for coronavirus. She states understanding and appreciation for her care, and was flipped to inpatient status. <Anamaria Hobbs, DO - Last Filed: 07/24/20 07:14> Lab Data Labs: Lab Results 07/23/20 07/23/20 07/23/20 Range/Units 12:40 12:40 12:40 WBC (4.5-11.0) X10^3/uL RBC (4.0-5.2) X10^6/uL Hgb (12.0-16.0) g/dL Hct (36-46) % MCV (80-100) fL MCH (26-34) PG MCHC (30-36) % RDW (11.6-14.8) % Plt Count (150-400) X10^3/uL Neut % (Auto) (50-75) % Lymph % (Auto) (25-40) % [place] % (Auto) (3-14) % Eos % (Auto) (2-4) % Baso % (Auto) (0-2) % Neut # (Auto) (9198-8999) /uL Lymph # (Auto) (1398-7552) /uL [place] # (Auto) (0-900) /uL Eos # (Auto) (0-450) /uL Baso # (Auto) (0-100) /uL Sodium (137-145) mmol/L Potassium (3.4-5.1) mmol/L Chloride (98-107) mmol/L Carbon Dioxide (22-32) mmol/L BUN (7-17) mg/dL Creatinine (0.52-1.04) mg/dL Estimated GFR (>60) mL/min BUN/Creatinine Ratio (6-22) Glucose (70-100) mg/dL Lactate 1.2 (0.7-2.1) mmol/L Calcium (8.4-10.2) mg/dL Magnesium 2.3 (1.6-2.3) mg/dL Total Bilirubin (0.2-1.3) mg/dL AST (14-36) IU/L ALT (<35) IU/L Alkaline Phosphatase (38-126) U/L Total Protein (6.3-8.2) g/dL Albumin (3.5-5.0) g/dL Globulin (1.7-4.1) g/dL Albumin/Globulin Ratio (1.0-2.8) Procalcitonin 0.41 (<0.5) ng/mL Urine RBC (0-5/HPF) Urine WBC (0-5/HPF) Ur Squamous Epith Cells (0-5/HPF) Urine Bacteria (None) Urine Mucus (Negative) Ur Culture Indicated? Urine Test (Negative) COVID-19 PCR (Negative) 07/23/20 07/23/20 07/23/20 Range/Units 12:40 12:40 13:00 WBC 10.3 (4.5-11.0) X10^3/uL RBC 4.61 (4.0-5.2) X10^6/uL Hgb 14.4 (12.0-16.0) g/dL Hct 40.4 (36-46) % MCV 87.6 (80-100) fL MCH 31.2 (26-34) PG MCHC 35.6 (30-36) % RDW 12.4 (11.6-14.8) % Plt Count 141 L (150-400) X10^3/uL Neut % (Auto) 78.1 H (50-75) % Lymph % (Auto) 11.2 L (25-40) % [place] % (Auto) 10.4 (3-14) % Eos % (Auto) 0.0 L (2-4) % Baso % (Auto) 0.3 (0-2) % Neut # (Auto) 8100 H (3782-3920) /uL Lymph # (Auto) 1200 (5304-5511) /uL [place] # (Auto) 1100 H (0-900) /uL Eos # (Auto) 0 (0-450) /uL Baso # (Auto) 0 (0-100) /uL Sodium 139 (137-145) mmol/L Potassium 3.2 L (3.4-5.1) mmol/L Chloride 105 (98-107) mmol/L Carbon Dioxide 28 (22-32) mmol/L BUN 7 (7-17) mg/dL Creatinine 0.78 (0.52-1.04) mg/dL Estimated GFR > 60.0 (>60) mL/min BUN/Creatinine Ratio 9.0 (6-22) Glucose 108 H (70-100) mg/dL Lactate (0.7-2.1) mmol/L Calcium 8.9 (8.4-10.2) mg/dL Magnesium (1.6-2.3) mg/dL Total Bilirubin 1.9 H (0.2-1.3) mg/dL AST 21 (14-36) IU/L ALT 15 (<35) IU/L Alkaline Phosphatase 58 (38-126) U/L Total Protein 7.5 (6.3-8.2) g/dL Albumin 4.2 (3.5-5.0) g/dL Globulin 3.3 (1.7-4.1) g/dL Albumin/Globulin Ratio 1.3 (1.0-2.8) Procalcitonin (<0.5) ng/mL Urine RBC 1-5/hpf (0-5/HPF) Urine WBC 5-10/hpf H (0-5/HPF) Ur Squamous Epith Cells 1-5 /hpf (0-5/HPF) Urine Bacteria Few (2-10) H (None) Urine Mucus 1+ H (Negative) Ur Culture Indicated? Specimen cultured Urine Test (Negative) COVID-19 PCR (Negative) 07/23/20 07/23/20 Range/Units 13:00 13:15 WBC (4.5-11.0) X10^3/uL RBC (4.0-5.2) X10^6/uL Hgb (12.0-16.0) g/dL Hct (36-46) % MCV (80-100) fL MCH (26-34) PG MCHC (30-36) % RDW (11.6-14.8) % Plt Count (150-400) X10^3/uL Neut % (Auto) (50-75) % Lymph % (Auto) (25-40) % [place] % (Auto) (3-14) % Eos % (Auto) (2-4) % Baso % (Auto) (0-2) % Neut # (Auto) (7850-9399) /uL Lymph # (Auto) (8666-7566) /uL [place] # (Auto) (0-900) /uL Eos # (Auto) (0-450) /uL Baso # (Auto) (0-100) /uL Sodium (137-145) mmol/L Potassium (3.4-5.1) mmol/L Chloride (98-107) mmol/L Carbon Dioxide (22-32) mmol/L BUN (7-17) mg/dL Creatinine (0.52-1.04) mg/dL Estimated GFR (>60) mL/min BUN/Creatinine Ratio (6-22) Glucose (70-100) mg/dL Lactate (0.7-2.1) mmol/L Calcium (8.4-10.2) mg/dL Magnesium (1.6-2.3) mg/dL Total Bilirubin (0.2-1.3) mg/dL AST (14-36) IU/L ALT (<35) IU/L Alkaline Phosphatase (38-126) U/L Total Protein (6.3-8.2) g/dL Albumin (3.5-5.0) g/dL Globulin (1.7-4.1) g/dL Albumin/Globulin Ratio (1.0-2.8) Procalcitonin (<0.5) ng/mL Urine RBC (0-5/HPF) Urine WBC (0-5/HPF) Ur Squamous Epith Cells (0-5/HPF) Urine Bacteria (None) Urine Mucus (Negative) Ur Culture Indicated? Urine Test Negative (Negative) COVID-19 PCR Negative (Negative) Point of Care Testing Test Results Negative Urine Dip Bedside Urine Glucose Negative Bedside Urine Bilirubin - Negative Bedside Urine Ketone +++ 80 Urine Specific [place] 1.025 Bedside Urine Occult Blood ++ Bedside Urine pH 6.0 Bedside Urine Protein +/- 15 Bedside Urine Urobilinogen - Negative Bedside Urine Nitrite - Negative Bedside Urine Leukocytes - Negative Esterase Discharge Plan Departure Patient Disposition: Admitted As Inpatient Clinical Impression: E coli bacteremia, Pyelonephritis Admit Date/Time: 07/23/20 15:28 Admit Provider: Jasmyne Looney <Anamaria Hobbs DO - Last Filed: 07/24/20 07:14> Cosign ED Attending Cosignature Attestation: I was immediately available in the department for consultation. Documentation has been reviewed. I agree with assessment and plan.
[2020-07-23] MEDS: CEFTRIAXONE 1 GM/50 ML FROZ.PIGGY IV ×2 (14:28→17:38)
[2020-07-23] MEDS: SODIUM CHLORIDE 0.9% 1,000 ML 100 ML IV ×2 (14:28→16:26)
[2020-07-23] MEDS: ACETAMINOPHEN 325 MG TABLET 650 MG PO ×2 (14:29→21:17)
--- NOTE | 2020-07-23 14:34 | DI.CT.S_ITS ---
PROCEDURE: CT KIDNEY URETER BLADDER (KUB) INDICATIONS: pylo TECHNIQUE: Noncontrast 5 mm thick sections acquired from the diaphragms to the symphysis. 5 mm thick coronal and sagittal reformats were then performed. For radiation dose reduction, the following was used: automated exposure control, adjustment of mA and/or kV according to patient size. COMPARISON: [facility], CT, CT ABDOMEN PELVIS WITH CONTRAST, 11/24/2017, 0:29. FINDINGS: Image quality: Excellent. Lung bases: Lung bases are clear. Heart size is normal. Urinary system: Both kidneys are normal in size. No kidney stones. No hydronephrosis. There is mild left-sided perinephric inflammation. Both ureters appear non-dilated throughout their expected courses. Bladder wall thickness is normal; no calcified bladder stones. Other solid organs: Liver is normal in size. Gallbladder is unremarkable. Pancreas is normal in contours. Spleen is normal in size. No adrenal nodules. Peritoneum and bowel: Unenhanced bowel loops demonstrate normal wall thickness and caliber. No free fluid or air. Nodes and vessels: No retroperitoneal or mesenteric adenopathy by size criteria. Aorta and inferior vena cava are normal in caliber. Abdominal wall: No ventral hernias. Pelvis: No free pelvic fluid. No inguinal hernias or adenopathy. IUD is noted in place within the uterus. Incidental note of a right-sided Bartholin's cyst, unchanged. Bones: Incidental note of transitional type anatomy at the lumbosacral junction with pseudoarticulation on the right which may be a source of chronic pain. No suspicious bony lesions. No vertebral body compression fractures. IMPRESSION: No urinary tract calcifications or evidence of an obstructive uropathy. There is very mild left perinephric inflammation which may be seen in the setting of an infectious process. Otherwise, no evidence of an acute intra-abdominal/pelvic abnormality. Dictated by: Abilio Munroe D.O. on 07/23/2020 at 14:11 Approved by: Abilio Munroe D.O. on 07/23/2020 at 14:18
[2020-07-23] MEDS: POTASSIUM CHLORIDE 20 MEQ TAB 40 MEQ PO (17:36)
[2020-07-23] MEDS: INFLUENZA VACCINE 0.5 ML SYRINGE IM (17:37)
[2020-07-23] MEDS: KETOROLAC 30 MG/ML VIAL IV ×2 (17:38→23:27)
--- NOTE | 2020-07-23 17:49 | PC.NURSE ---
Admitted 1610 from ED per stretcher. Admission assessment completed, IV NS in progress to RAC IV. C/O 03/03 tawny flank pain, notified for orders. Oriented to environment, cooperative with care, able to make needs known.
--- NOTE | 2020-07-23 18:20 | PM.HP.1 ---
History of Present Illness History of Present Illness Date Patient Seen: 07/23/20 Chief complaint: abnormal bloodwork Narrative: Armond Bernard is a 24-year-old female with no significant past medical history who was sexually active and has the Mirena IUD who was previously seen in the ED on 07/22/2020 for dysuria, fever, chills, rigors, nausea and vomiting who had urine and blood cultures performed was treated for pyelonephritis with IV ceftriaxone and discharged home on Bactrim. She was called today and instructed to return to the ED due to positive blood cultures with E. coli. The patient reports that approximately 1 week ago she began having dysuria with burning sensation, urinary frequency and foul-smelling urine. She increased her fluid intake and stated she hoped that it would go away. She then developed flank and back pain on 07/19 and later fever, chills, and rigors on 07/21. She did not seek medical attention until she developed nausea with vomiting the next morning prompting her to go to the ED. She continues to have mild fever and chills, left flank and back pain radiating up to chest, mild headache and another episode of nausea with vomiting this morning. She currently denies cough, shortness of breath, nausea, diarrhea or constipation. ED course: Patient was called and instructed to return to the ED for positive blood cultures with E coli. Vital signs: Temperature 99.7?, blood pressure 129/67, heart rate 99, respiratory rate 16, SpO2 100% on room air. Patient had repeat urine and blood cultures performed in ED. Requested CT KUB which demonstrated mild left-sided perinephric inflammation with no urinary tract calcifications or evidence of an obstructive uropathy. Patient was admitted inpatient for treatment of pyelonephritis and bacteremia. No PCP Patient History Medical History (Updated 07/23/20 @ 18:43 by Jasmyne Looney DO) No pertinent past medical history Surgical History (Updated 07/23/20 @ 18:43 by Jasmyne Looney DO) No pertinent past surgical history Family & Social History Family History (Updated 07/23/20 @ 18:44 by Jasmyne Looney DO) Father Diabetes mellitus Mother Healthy adult Brother Healthy adult Sister Healthy adult Social History: household members significant other Prior Living Arrangements House Safety & Behavioral: Feels Safe in Current Yes Environment Been Physically Hurt or No Threatened By a Person Suicidal Ideation Description None Suicide Plan Description No Plan Tobacco & Substance use: Smoking Status Never smoker alcohol intake frequency holiday/special occasion Substance Use Type marijuana, 1-2 times week Patient has a significant other x 3 years. She has no children. 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 Meds Home Medications and Allergies Allergies Allergy/AdvReac Type Severity Reaction Status Date / Time No Known Drug Allergies Allergy Verified 07/22/20 11:43 Review of Systems Review of Systems Narrative: A 10 system comprehensive review of systems was conducted with the patient and found to be negative except as above in the History of Present Illness. Exam Vital Signs (past 8 hours): - 07/23/20 12:37 07/23/20 13:05 07/23/20 13:07 Temperature 99.7 F H Pulse Rate 99 H 96 H 103 H Respiratory Rate 16 Blood Pressure 129/67 110/57 L Pulse Oximetry 100 96 100 07/23/20 13:09 07/23/20 13:30 07/23/20 14:00 Temperature Pulse Rate 88 85 79 Respiratory Rate Blood Pressure 119/61 114/59 L 121/56 L Pulse Oximetry 100 99 100 07/23/20 14:30 07/23/20 14:57 07/23/20 15:00 Temperature Pulse Rate 80 83 83 Respiratory Rate Blood Pressure 117/62 112/55 L 115/57 L Pulse Oximetry 99 99 99 07/23/20 15:30 07/23/20 15:57 07/23/20 16:00 Temperature 99.8 F H Pulse Rate 90 77 79 Respiratory Rate 14 Blood Pressure 106/59 L 111/56 L Pulse Oximetry 96 98 97 07/23/20 16:25 07/23/20 17:38 07/23/20 18:07 Temperature 99.8 F H 99.8 F H 99.8 F H Pulse Rate Respiratory Rate Blood Pressure Pulse Oximetry Oxygen Delivery Method Room Air Narrative Exam Narrative: General: Young female sitting in bed and in no acute distress, well-developed, well-nourished, appropriately interactive. HEENT: Normocephalic, atraumatic. External ears without defect. Pupils equal, round, and reactive to light. Anicteric sclerae, moist conjunctivae, and no lid lag. Oropharynx free of erythema and cobble stoning with moist mucosa. Neck: Supple with full range of motion. No lymphadenopathy or thyromegaly. Cardiovascular: Regular rate and rhythm without murmurs, rubs, or gallops appreciated. Pulmonary: Clear to auscultation bilaterally without crackles, wheezes, or rhonchi. Normal respiratory effort with no use of accessory muscles. Abdomen: Soft, bowel sounds present, nondistended. Mild suprapubic and left CVA and flank tenderness to palpation. Extremities: No clubbing, cyanosis, or edema. Skin: Normal temperature, turgor, and texture; no rash, ulcers, or subcutaneous nodules appreciated. Neurological: Cranial nerves grossly intact. Psychiatric: Normal mood and affect. Alert and oriented to person, place, and time. Objective Labs Result Diagrams: 07/24/20 05:24 07/24/20 05:24 Labs: Laboratory Results - last 24 hr 07/23/20 07/23/20 07/23/20 12:40 12:40 12:40 WBC RBC Hgb Hct MCV MCH MCHC RDW Plt Count Neut % (Auto) Lymph % (Auto) [place] % (Auto) Eos % (Auto) Baso % (Auto) Neut # (Auto) Lymph # (Auto) [place] # (Auto) Eos # (Auto) Baso # (Auto) Sodium Potassium Chloride Carbon Dioxide BUN Creatinine Estimated GFR BUN/Creatinine Ratio Glucose Lactate 1.2 Calcium Magnesium 2.3 Total Bilirubin AST ALT Alkaline Phosphatase Total Protein Albumin Globulin Albumin/Globulin Ratio Procalcitonin 0.41 Urine RBC Urine WBC Ur Squamous Epith Cells Urine Bacteria Urine Mucus Ur Culture Indicated? COVID-19 PCR 07/23/20 07/23/20 07/23/20 12:40 12:40 13:00 WBC 10.3 RBC 4.61 Hgb 14.4 Hct 40.4 MCV 87.6 MCH 31.2 MCHC 35.6 RDW 12.4 Plt Count 141 L Neut % (Auto) 78.1 H Lymph % (Auto) 11.2 L [place] % (Auto) 10.4 Eos % (Auto) 0.0 L Baso % (Auto) 0.3 Neut # (Auto) 8100 H Lymph # (Auto) 1200 [place] # (Auto) 1100 H Eos # (Auto) 0 Baso # (Auto) 0 Sodium 139 Potassium 3.2 L Chloride 105 Carbon Dioxide 28 BUN 7 Creatinine 0.78 Estimated GFR > 60.0 BUN/Creatinine Ratio 9.0 Glucose 108 H Lactate Calcium 8.9 Magnesium Total Bilirubin 1.9 H AST 21 ALT 15 Alkaline Phosphatase 58 Total Protein 7.5 Albumin 4.2 Globulin 3.3 Albumin/Globulin Ratio 1.3 Procalcitonin Urine RBC 1-5/hpf Urine WBC 5-10/hpf H Ur Squamous Epith Cells 1-5 /hpf Urine Bacteria Few (2-10) H Urine Mucus 1+ H Ur Culture Indicated? Specimen cultured COVID-19 PCR 07/23/20 13:15 WBC RBC Hgb Hct MCV MCH MCHC RDW Plt Count Neut % (Auto) Lymph % (Auto) [place] % (Auto) Eos % (Auto) Baso % (Auto) Neut # (Auto) Lymph # (Auto) [place] # (Auto) Eos # (Auto) Baso # (Auto) Sodium Potassium Chloride Carbon Dioxide BUN Creatinine Estimated GFR BUN/Creatinine Ratio Glucose Lactate Calcium Magnesium Total Bilirubin AST ALT Alkaline Phosphatase Total Protein Albumin Globulin Albumin/Globulin Ratio Procalcitonin Urine RBC Urine WBC Ur Squamous Epith Cells Urine Bacteria Urine Mucus Ur Culture Indicated? COVID-19 PCR Negative Assessment & Plan Assessment & Plan narrative: Armond Bernard is a 24-year-old female with no significant past medical history who was sexually active and has the Mirena IUD who was previously seen in the ED on 07/22/2020 for dysuria, fever, chills, rigors, nausea and vomiting who had urine and blood cultures performed was treated for pyelonephritis with IV ceftriaxone and discharged home on Bactrim. She was called today and instructed to return to the ED due to positive blood cultures with E. coli. 1. Acute E. coli left sided pyelonephritis and bacteremia, present on admission. Active. -Patient presented with 1 week of dysuria with burning sensation, urinary frequency and foul-smelling urine with associated fever, chills, rigors, nausea and vomiting. -Urine test negative and patient has Mirena IUD. Chlamydia and gonorrhea sent off and pending. -Initial WBC 11.9 and procalcitonin 0.27 in Ed on 07/22. WBC trending down to 10.3 and procalcitonin likely peaking now 0.41. Continue to monitor WBC and procalcitonin daily. -Blood cultures x2 from ED visit on 07/22 preliminarily positive for E.coli with sensitivities pending. Patient was called and instructed to return to ED due to positive blood cultures. Repeat blood cultures x2 pending. -Urine culture from ED visit on 07/22 preliminarily growing gram negative bacilli. -CT KUB demonstrated mild left-sided perinephric inflammation with no urinary tract calcifications or evidence of an obstructive uropathy. -Received ceftriaxone 1 g IV x1 and discharged on Bactrim DS of which she took 1 dose and then she was called and instructed to return to ED due to positive blood cultures. Received ceftriaxone 1 g IV in ED. Plan to give additional ceftriaxone 1 g IV now and start ceftriaxone 2 g IV daily tomorrow pending urine culture identification and sensitivities. Due to bactremia the patient will need at least 3 doses of IV antibiotics and 10 days total of antibiotic treatment. 2. Acute mild hypokalemia, present on admission. Active. -Likely due to GI losses from N/V. -Initial potassium 3.2. Ordered potassium chloride 40 mEq PO x1. -Continue to monitor potassium and replete as necessary. Code status: Full code, surrogate decision maker is designated as patient's mother Danielle Layne VTE prophylaxis: SQ heparin, SCDs Patient is admitted under inpatient status with expected length of stay greater than 2 midnights due to severity of presenting symptoms, risk of adverse event, and complexity of treatment plan. Quality VTE Deep Vein Thrombosis/Pulmonary Embolism Present on Admission: No
[2020-07-23 18:36] LABS: Pregnancy Test Urine Negative (Negative)
[2020-07-23] MEDS: CALCIUM CARBONATE 500 MG TAB 1000 MG PO (23:28)
--- NOTE | 2020-07-24 00:11 | PC.NURSE ---
Addendum entered by Lilo Segundo R.N. 07/24/20 03:26: 0145 Pt notes resolved pain after warm compress. Addendum entered by Lilo Segundo R.N. 07/24/20 01:09: 0100 Pt c/o continuous burning sensation in urethra post void approximately 30 minutes ago. Trying warm compress over lower abdomen. Original Note: 2300 Received safe hand-off report. The patient is awake and oriented x4, resting in bed. She has a PIV in her right antecubital with NS infusing at 100mL/h. She is independent; therefore, does not need a bed alarm set. Upon assessment, she rates her pain 5/10 and c/o mild burning pain epigastricly as well as mild nausea. Administered Toradol, tums and ondansetron per orders. No s/sx of distress. Will continue to monitor.
[2020-07-24] MEDS: SODIUM CHLORIDE 0.9% 1,000 ML 100 ML IV (03:01)
[2020-07-24 05:50] VITALS: BP 112/63; PULSE 83; RESP 16; TEMP 37.7; O2SAT 98
[2020-07-24 05:54] LABS: Add Manual Diff / Slide Review NO; Basophils Absolute Auto 0 /uL (0-100); Basophils Percent Auto 0.4 % (0-2); Eosinophils Absolute Auto 0 /uL (0-450); Eosinophils Percent Auto 0.3 % (2-4); Hematocrit 34.2 % (36-46); Lymphocytes Absolute Auto 1000 /uL (1100-4500); Lymphocytes Percent Auto 17.1 % (25-40); Mean Corpuscular HGB Conc 35.2 % (30-36); Mean Corpuscular Hemoglobin 31.1 PG (26-34); Mean Corpuscular Volume 88.3 fL (80-100); Monocytes Absolute Auto 800 /uL (0-900); Monocytes Percent Auto 13.8 % (3-14); Neutrophils Absolute Auto 3800 /uL (1500-7000); Neutrophils Percent Auto 68.4 % (50-75); Platelet Count 122 X10^3/uL (150-400); Red Blood Cell Count 3.88 X10^6/uL (4.0-5.2); Red Cell Distribution Width 12.4 % (11.6-14.8); White Blood Cell Count 5.6 X10^3/uL (4.5-11.0)
[2020-07-24 06:05] LABS: Alanine Aminotransferase 13 IU/L (<35); Albumin 3.1 g/dL (3.5-5.0); Albumin Globulin Ratio 1.1 (1.0-2.8); Alkaline Phosphatase 47 U/L (38-126); Aspartate Aminotransferase 18 IU/L (14-36); BUN Creatinine Ratio 14.1 (6-22); Bilirubin Total 0.8 mg/dL (0.2-1.3); Blood Urea Nitrogen 9 mg/dL (7-17); Carbon Dioxide 27 mmol/L (22-32); Chloride 108 mmol/L (98-107); Estimated Glomerular Filt Rate > 60.0 mL/min (>60); Globulin 2.7 g/dL (1.7-4.1); Glucose 88 mg/dL (70-100); HEMOLYSIS < 15 (0-50); Magnesium 2.1 mg/dL (1.6-2.3); Potassium 3.7 mmol/L (3.4-5.1); Sodium 137 mmol/L (137-145); Total Protein 5.8 g/dL (6.3-8.2)
[2020-07-24 06:24] LABS: Procalcitonin 0.27 ng/mL (<0.5)
[2020-07-24 07:00] VITALS: O2SAT 96
[2020-07-24 07:51] VITALS: BP 101/58; PULSE 95; RESP 14; TEMP 37.1; O2SAT 96
[2020-07-24] MEDS: CEFTRIAXONE 2 GM/50 ML FROZ.PIGGY IV (08:27)
[2020-07-24] MEDS: KETOROLAC 30 MG/ML VIAL IV (08:28)
--- NOTE | 2020-07-24 08:48 | PM.DS.1 ---
History of Present Illness History of Present Illness Date Patient Seen: 07/23/20 Chief complaint: abnormal bloodwork Narrative: Written by myself Dr. Looney: Armond Bernard is a 24-year-old female with no significant past medical history who was sexually active and has the Mirena IUD who was previously seen in the ED on 07/22/2020 for dysuria, fever, chills, rigors, nausea and vomiting who had urine and blood cultures performed was treated for pyelonephritis with IV ceftriaxone and discharged home on Bactrim. She was called today and instructed to return to the ED due to positive blood cultures with E. coli. The patient reports that approximately 1 week ago she began having dysuria with burning sensation, urinary frequency and foul-smelling urine. She increased her fluid intake and stated she hoped that it would go away. She then developed flank and back pain on 07/19 and later fever, chills, and rigors on 07/21. She did not seek medical attention until she developed nausea with vomiting the next morning prompting her to go to the ED. She continues to have mild fever and chills, left flank and back pain radiating up to chest, mild headache and another episode of nausea with vomiting this morning. She currently denies cough, shortness of breath, nausea, diarrhea or constipation. ED course: Patient was called and instructed to return to the ED for positive blood cultures with E coli. Vital signs: Temperature 99.7?, blood pressure 129/67, heart rate 99, respiratory rate 16, SpO2 100% on room air. Patient had repeat urine and blood cultures performed in ED. Requested CT KUB which demonstrated mild left-sided perinephric inflammation with no urinary tract calcifications or evidence of an obstructive uropathy. Patient was admitted inpatient for treatment of pyelonephritis and bacteremia. No PCP Discharge Providers Provider Date of admission: 07/23/20 15:28 Discharge Date: 07/24/20 Discharge provider: Jasmyne Looney DO Summary Hospital Course Discharge Diagnosis: 1. Acute E. coli left sided pyelonephritis and bacteremia, present on admission. Resolving. 2. Acute mild hypokalemia, present on admission. Resolved. Hospital Course: Armond Bernard is a 24-year-old female with no significant past medical history who was sexually active and has the Mirena IUD who was previously seen in the ED on 07/22/2020 for dysuria, fever, chills, rigors, nausea and vomiting who had urine and blood cultures performed was treated for pyelonephritis with IV ceftriaxone and discharged home on Bactrim. She was called today and instructed to return to the ED due to positive blood cultures with E. coli. 1. Acute E. coli left sided pyelonephritis and bacteremia, present on admission. Resolving. -Patient presented with 1 week of dysuria with burning sensation, urinary frequency and foul-smelling urine with associated fever, chills, rigors, nausea and vomiting. -Urine test negative and patient has Mirena IUD. Chlamydia and gonorrhea sent out and pending. -CT KUB demonstrated mild left-sided perinephric inflammation with no urinary tract calcifications or evidence of an obstructive uropathy. -Initial WBC 11.9 and procalcitonin 0.27 in ED on 07/22. WBC trended down to normal at 5.6 and procalcitonin peaked at 0.41 and trending down/normalizing now at 0.27. Continued to monitor WBC and procalcitonin daily. -Blood cultures x2 and urine culture from 07/22/20 grew pansensitive E. coli. Repeat blood cultures x2 has no growth for 24 hours and bloodstream infection cleared. Repeat urine culture preliminarily has no growth. -Received ceftriaxone 1 g IV x1 on 07/22 in ED. Discharged on Bactrim DS of which she took 1 dose on 07/22 and then she was called and instructed to return to ED due to positive blood cultures on 07/23. Received ceftriaxone 1 g IV x1 in ED and additional ceftriaxone 1 g IV on 07/23. She received ceftriaxone 2 g IV x 1 today 07/24 for a total of 3 days of IV antibiotics. Patient improved more rapidly than anticipated with IV antibiotics and discharged home on cefuroxime 500 mg twice daily for 7 additional days to complete 10 day total course of antibiotics. 2. Acute mild hypokalemia, present on admission. Resolved. -Likely due to GI losses from N/V. -Initial potassium 3.2. Received potassium chloride 40 mEq PO x1. Potassium level now normal at 3.7. -Continued to monitor potassium and replete as necessary. Exam Vital Signs (past 8 hours): - 07/24/20 05:50 07/24/20 07:51 Temperature 99.8 F H 98.8 F Pulse Rate 83 95 H Respiratory Rate 16 14 Blood Pressure 112/63 101/58 L Pulse Oximetry 98 96 Oxygen Delivery Method Room Air Oxygen Flow Rate 0 Narrative Exam Narrative: General: Young female sitting in bed and in no acute distress, well-developed, well-nourished, appropriately interactive. HEENT: Normocephalic, atraumatic. External ears without defect. Pupils equal, round, and reactive to light. Anicteric sclerae, moist conjunctivae, and no lid lag. Oropharynx free of erythema and cobble stoning with moist mucosa. Neck: Supple with full range of motion. No lymphadenopathy or thyromegaly. Cardiovascular: Regular rate and rhythm without murmurs, rubs, or gallops appreciated. Pulmonary: Clear to auscultation bilaterally without crackles, wheezes, or rhonchi. Normal respiratory effort with no use of accessory muscles. Abdomen: Soft, bowel sounds present, nondistended. Mild suprapubic and left CVA and flank tenderness to palpation resolved. Extremities: No clubbing, cyanosis, or edema. Skin: Normal temperature, turgor, and texture; no rash, ulcers, or subcutaneous nodules appreciated. Neurological: Cranial nerves grossly intact. Psychiatric: Normal mood and affect. Alert and oriented to person, place, and time. Objective Labs Result Diagrams: 07/24/20 05:24 07/24/20 05:24 Labs: Laboratory Results - last 24 hr 07/23/20 07/23/20 07/23/20 12:40 12:40 12:40 WBC RBC Hgb Hct MCV MCH MCHC RDW Plt Count Neut % (Auto) Lymph % (Auto) [place] % (Auto) Eos % (Auto) Baso % (Auto) Neut # (Auto) Lymph # (Auto) [place] # (Auto) Eos # (Auto) Baso # (Auto) Sodium Potassium Chloride Carbon Dioxide BUN Creatinine Estimated GFR BUN/Creatinine Ratio Glucose Lactate 1.2 Calcium Magnesium 2.3 Total Bilirubin AST ALT Alkaline Phosphatase Total Protein Albumin Globulin Albumin/Globulin Ratio Procalcitonin 0.41 Urine RBC Urine WBC Ur Squamous Epith Cells Urine Bacteria Urine Mucus Ur Culture Indicated? Urine Test COVID-19 PCR 07/23/20 07/23/20 07/23/20 12:40 12:40 13:00 WBC 10.3 RBC 4.61 Hgb 14.4 Hct 40.4 MCV 87.6 MCH 31.2 MCHC 35.6 RDW 12.4 Plt Count 141 L Neut % (Auto) 78.1 H Lymph % (Auto) 11.2 L [place] % (Auto) 10.4 Eos % (Auto) 0.0 L Baso % (Auto) 0.3 Neut # (Auto) 8100 H Lymph # (Auto) 1200 [place] # (Auto) 1100 H Eos # (Auto) 0 Baso # (Auto) 0 Sodium 139 Potassium 3.2 L Chloride 105 Carbon Dioxide 28 BUN 7 Creatinine 0.78 Estimated GFR > 60.0 BUN/Creatinine Ratio 9.0 Glucose 108 H Lactate Calcium 8.9 Magnesium Total Bilirubin 1.9 H AST 21 ALT 15 Alkaline Phosphatase 58 Total Protein 7.5 Albumin 4.2 Globulin 3.3 Albumin/Globulin Ratio 1.3 Procalcitonin Urine RBC 1-5/hpf Urine WBC 5-10/hpf H Ur Squamous Epith Cells 1-5 /hpf Urine Bacteria Few (2-10) H Urine Mucus 1+ H Ur Culture Indicated? Specimen cultured Urine Test COVID-19 PCR 07/23/20 07/23/20 07/24/20 13:00 13:15 05:24 WBC 5.6 RBC 3.88 L Hgb 12.0 Hct 34.2 L MCV 88.3 MCH 31.1 MCHC 35.2 RDW 12.4 Plt Count 122 L Neut % (Auto) 68.4 Lymph % (Auto) 17.1 L [place] % (Auto) 13.8 Eos % (Auto) 0.3 L Baso % (Auto) 0.4 Neut # (Auto) 3800 Lymph # (Auto) 1000 L [place] # (Auto) 800 Eos # (Auto) 0 Baso # (Auto) 0 Sodium Potassium Chloride Carbon Dioxide BUN Creatinine Estimated GFR BUN/Creatinine Ratio Glucose Lactate Calcium Magnesium Total Bilirubin AST ALT Alkaline Phosphatase Total Protein Albumin Globulin Albumin/Globulin Ratio Procalcitonin Urine RBC Urine WBC Ur Squamous Epith Cells Urine Bacteria Urine Mucus Ur Culture Indicated? Urine Test Negative COVID-19 PCR Negative 07/24/20 07/24/20 05:24 05:24 WBC RBC Hgb Hct MCV MCH MCHC RDW Plt Count Neut % (Auto) Lymph % (Auto) [place] % (Auto) Eos % (Auto) Baso % (Auto) Neut # (Auto) Lymph # (Auto) [place] # (Auto) Eos # (Auto) Baso # (Auto) Sodium 137 Potassium 3.7 Chloride 108 H Carbon Dioxide 27 BUN 9 Creatinine 0.64 Estimated GFR > 60.0 BUN/Creatinine Ratio 14.1 Glucose 88 Lactate Calcium 8.0 L Magnesium 2.1 Total Bilirubin 0.8 AST 18 ALT 13 Alkaline Phosphatase 47 Total Protein 5.8 L Albumin 3.1 L Globulin 2.7 Albumin/Globulin Ratio 1.1 Procalcitonin 0.27 Urine RBC Urine WBC Ur Squamous Epith Cells Urine Bacteria Urine Mucus Ur Culture Indicated? Urine Test COVID-19 PCR PFSH Medical History (Updated 07/23/20 @ 18:43 by Jasmyne Looney DO) No pertinent past medical history Surgical History (Updated 07/23/20 @ 18:43 by Jasmyne Looney DO) No pertinent past surgical history Family History (Updated 07/23/20 @ 18:44 by Jasmyne Looney DO) Father Diabetes mellitus Mother Healthy adult Brother Healthy adult Sister Healthy adult Social History household members: significant other Smoking Status: Never smoker Discharge Plan Discharge Plan Patient Disposition: Home Provider Discharge Comment: You are being discharged home. You have a kidney infection and the bacteria got into your blood stream. You have received 3 days of IV antibiotics. You have been prescribed cefuroxime 500 mg twice daily for 7 additional days to complete the antibiotic course. It is not uncommon to have fevers and chills for up to 2 weeks but they should be less frequent and less severe and slowly dissipate. Try to get plenty of rest and stay well hydrated. You may take acetaminophen as directed on bottle for fever and pain. Please hours care with a primary care physician in the area. Discharge orders & Medications Prescriptions: New cefuroxime axetil 500 mg tablet 500 mg PO BID Qty: 14 RF: 0 Diet/Activity/Treatments Diet: Diet as Tolerated Activity: Activity as tolerated Visit Report/Discharge Packet Instructions: DI for Kidney Infection, Cefuroxime, DI for Bacteremia--Child Quality VTE Deep Vein Thrombosis/Pulmonary Embolism Present on Admission: No
--- NOTE | 2020-07-24 10:32 | CM.DANOTE ---
DCP/Assessment: Reviewed chart. Patient is a 24yr old female admitted to [facility] with abnormal blood work. PCP listed is Sheba Estrada. Primary payor is 1)[employer] 2)Medicaid. Met with patient explained CM/SW role. Patient's significant other at bedside. Patient reports that she is completely I in all ADL's. Patient hopes to d/c home today. Spoke with Dr. Looney whom anticipates if stable patient will d/c home today. P: Home with supportive significant other and family support. STACY Kapoor Discharge Planning/Care Management CM Discharge Assessment Start: 07/24/20 09:24 Freq: Status: Active Protocol: Document 07/24/20 09:25 KJS (Rec: 07/24/20 09:28 KJS [id number]) Discharge Planning Assessment Assigned Air Liaison And Special Staff STACY Kapoor Contact Information Erasmo (significant other) # [phone] Advance Directives? No History Provided By Patient,Significant Other, Medical Record Prior Living Arrangements House Household Members significant other Type of transporation used prior to Drives own vehicle admit Independent with ADL's Yes Is patient alert and oriented? Yes Caregiver for Another No Barriers to Discharge No Discharge Plan Home Transportation Arrangement Family or signifiant other. Referrals Initiated None needed Whiteboard Updated in Patient Room with Yes name and ext. # of Air Liaison And Special Staff Review Status In Process Next Review Type Continued Stay Review Document 07/24/20 10:29 KJS (Rec: 07/24/20 10:32 KJS [id number]) Discharge Planning Assessment Assigned [employer] Liaison And Special Staff STACY Kapoor Contact Information Erasmo (significant other) # [phone] Advance Directives? No History Provided By Patient,Significant Other, Medical Record Prior Living Arrangements House Household Members significant other Type of transporation used prior to Drives own vehicle admit Independent with ADL's Yes Is patient alert and oriented? Yes Caregiver for Another No Barriers to Discharge No Discharge Plan Home Transportation Arrangement Family or signifiant other. Referrals Initiated None needed Whiteboard Updated in Patient Room with Yes name and ext. # of Air Liaison And Special Staff Review Status In Process Next Review Type Continued Stay Review
--- NOTE | 2020-07-24 13:16 | PC.NURSE ---
All discharge teaching done for patient regarding medications, ss of infection, activity, diet/ increasing fluids, and hygiene for preventions of UTI. Patient verbalized understanding of all discharge teaching. Patient left facility via wheelchair and private vehicle.
== END 2020-07-24 13:18 | disposition home or self-care (01) | DRG 463 ==
LOC: ED 12:29 → AC 16:00
PROVIDERS: Admitting Provider Internal Medicine; Emergency Provider Nurse Practitioner Family; Family Provider Pediatrics; Referring Provider Nurse Practitioner Family; Visit Provider Internal Medicine
DX: N10 Acute pyelonephritis (principal); B96.20 Unspecified Escherichia coli [E. coli] as the cause of diseases classified elsewhere; R78.81 Bacteremia; E87.6 Hypokalemia; Z97.5 Presence of (intrauterine) contraceptive device; Z11.59 Encounter for screening for other viral diseases; Z23 Encounter for immunization
CPT/HCPCS: 36415; 74176; 80053; 81003; 81015; 81025; 83605; 83735; 84145; 85025; 87040; 87077; 87086; 87150; 87186; 87205; 87635; 90471; 90656; 96361; 96365; 96375; 99281; 99284; G0378; J0696; J1644; J1885; J2270; J2405; Q2038

== ENCOUNTER → 2021-03-15 11:55 | Outpatient (CLI) | payer OTHER, MEDICAID, SELFPAY ==
[2020-07-23 15:45] VITALS: BMI 23.6
== END ==
PROVIDERS: Family Provider Pediatrics; PCP Registered Nurse Diabetes Educator; Referring Provider Registered Nurse Diabetes Educator; Visit Provider Registered Nurse Diabetes Educator
DX: B00.9 Herpesviral infection, unspecified (principal)
CPT/HCPCS: 36415; 86695; 86696

== ENCOUNTER → 2021-04-18 16:09 | Outpatient (CLI) | payer OTHER, MEDICAID, SELFPAY ==
[2020-07-23 15:45] VITALS: BMI 23.6
[2021-04-18 17:55] LABS: HCG Quantitative /Beta subunit 7507.6 mIU/mL
[2021-04-19 09:22] LABS: Varicella IgG Antibody >4000 index (Immune >165)
== END ==
PROVIDERS: Family Provider Pediatrics; PCP Registered Nurse Diabetes Educator; Referring Provider Family Medicine; Visit Provider Family Medicine
DX: Z34.01 Encounter for supervision of normal first pregnancy, first trimester (principal)
CPT/HCPCS: 36415; 84702; 86787

== ENCOUNTER → 2021-04-20 12:50 | Outpatient (CLI) | payer OTHER, MEDICAID, SELFPAY ==
[2020-07-23 15:45] VITALS: BMI 23.6
[2021-04-20 15:48] LABS: HCG Quantitative /Beta subunit 12052 mIU/mL
== END ==
PROVIDERS: Family Provider Pediatrics; PCP Registered Nurse Diabetes Educator; Referring Provider Family Medicine; Visit Provider Family Medicine
DX: Z34.01 Encounter for supervision of normal first pregnancy, first trimester (principal)
CPT/HCPCS: 36415; 84702

== ENCOUNTER → 2021-05-11 18:31 | Outpatient (ROUT) | payer OTHER, MEDICAID, SELFPAY ==
[2020-07-23 15:45] VITALS: BMI 23.6
[2021-05-11 18:39] LABS: Appearance Urine UA CLEAR; Bilirubin Urine UA NEGATIVE (NEGATIVE); Color Urine UA YELLOW; Glucose Urine UA NEGATIVE (Negative); Ketones Urine UA NEGATIVE (NEGATIVE); Leukocyte Esterase Urine UA NEGATIVE (NEGATIVE); Nitrite Urine UA NEGATIVE (Negative); Occult Blood Urine UA NEGATIVE (Negative); Protein Urine UA NEGATIVE (Negative); Specific Gravity Urine UA 1.015 (1.000-1.035); Urobilinogen Urine UA 0.2 E.U./dL (0.2)
== END ==
PROVIDERS: Family Provider Pediatrics; PCP Registered Nurse Diabetes Educator; Visit Provider Family Medicine
DX: Z34.01 Encounter for supervision of normal first pregnancy, first trimester (principal)
CPT/HCPCS: 81003; 87086

== ENCOUNTER → 2021-07-10 13:09 | Outpatient (CLI) | payer OTHER, MEDICAID, SELFPAY ==
[2021-06-12 12:56] VITALS: BMI 23.6
[2021-07-10 13:39] LABS: Add Manual Diff / Slide Review NO; Basophils Absolute Auto 0 /uL (0-100); Basophils Percent Auto 0.3 % (0-2); Eosinophils Absolute Auto 0 /uL (0-450); Eosinophils Percent Auto 0.2 % (2-4); Hematocrit 36.1 % (36-46); Hemoglobin 12.8 g/dL (12.0-16.0); Lymphocytes Absolute Auto 1100 /uL (1100-4500); Lymphocytes Percent Auto 16.6 % (25-40); Mean Corpuscular HGB Conc 35.4 % (30-36); Mean Corpuscular Hemoglobin 30.4 PG (26-34); Mean Corpuscular Volume 85.9 fL (80-100); Monocytes Absolute Auto 400 /uL (0-900); Monocytes Percent Auto 5.2 % (3-14); Neutrophils Absolute Auto 5200 /uL (1500-7000); Neutrophils Percent Auto 77.7 % (50-75); Platelet Count 185 X10^3/uL (150-400); Red Blood Cell Count 4.21 X10^6/uL (4.0-5.2); Red Cell Distribution Width 12.6 % (11.6-14.8); White Blood Cell Count 6.7 X10^3/uL (4.5-11.0)
[2021-07-11 08:09] LABS: RPR Screen Non Reactive (Non Reactive)
[2021-07-12 17:32] LABS: Hepatitis B Surface Antigen NEGATIVE s/c (NEGATIVE); Rubella Antibody IgG 17.6 IU/mL (>15)
[2021-07-12 17:50] LABS: HIV 1 & 2 Ab/Ag 4th Gen Combo NEGATIVE (NEGATIVE); Hep C Virus Ab w/Reflex Quant NEGATIVE s/c (NEGATIVE)
[2021-07-13 20:09] LABS: AFP, Serum 79.6 ng/mL (.); Calc Gestational Age Ultrasound (.); Estriol, Free 1.42 ng/mL (.); Inhibin A, MoM 0.66 (.); Maternal Ethnicity Other (.); Maternal Weight 143 lbs (.); Number of Fetuses No (.); OSBR Risk 1 IN 806 (.); Results Report (.); Test Results *Screen Negative* (.); hCG, MoM 0.39 (.); hCG, Serum 13757 mIU/mL (.)
== END ==
PROVIDERS: Family Provider Pediatrics; PCP Registered Nurse Diabetes Educator; Referring Provider Family Medicine; Visit Provider Family Medicine
DX: Z34.01 Encounter for supervision of normal first pregnancy, first trimester (principal); Z3A.16 16 weeks gestation of pregnancy
CPT/HCPCS: 36415; 80055; 82105; 82677; 84702; 86336; 86803; 86850; 86900; 86901; 87389

== ENCOUNTER → 2021-08-08 07:56 | Outpatient (CLI) | payer OTHER, MEDICAID, SELFPAY ==
[2021-06-12 12:56] VITALS: BMI 23.6
--- NOTE | 2021-08-08 07:57 | DI.US.S_ITS ---
PROCEDURE: US OB >= 14 WEEKS FETUS INDICATIONS: ANATOMY OUTSIDE/PRIOR DATING DATA: First dating scan (date and location): 08/08/2021. Estimated date of delivery (CARLOS) from first dating scan: 12/13/2021. The calculations are made using the ultrasound CARLOS of 12/13/2021. TECHNIQUE: Real-time scanning was performed of the fetus, with image documentation and biometric measurements. Endovaginal scanning: No COMPARISON: None. FINDINGS: General: A single living intrauterine gestation is present. Presentation: Breech Placenta: Placental position is anterior , without previa. Amniotic fluid index: 16.9 cm, normal range is 5-24 cm. heart rate: 158 beats per minute. Maternal cervical canal: 3.1 cm long. Normal lower limit is 2.5 cm. biometrics: Biparietal diameter: 21 weeks 6 days Head circumference: 22 weeks Abdominal circumference: 21 weeks 6 days Femur length: 21 weeks 3 days Clinically estimated gestational age: 21 weeks 6 days Composite gestational age from present scan: 443 g Anatomic survey: Neuro: Ventricles are non-dilated at less than 10 mm. Cisterna magna is normal at 3-11 mm. Cerebellum is normal in size and morphology. Nuchal skin fold: Normal at less than 6 mm between 14-21 weeks gestational age. Face: Nose and lips, facial profile are normal. Spine: No evidence for spina bifida. Heart: 4-chambered heart is present, with normal ventricular outflow tracts. Diaphragm: Diaphragm is intact. Stomach: Left-sided stomach is present. Kidneys: Mild right renal pyelectasis with the renal pelvis measuring 6.0 mm. Normal left kidney. Normal is less than 5 mm in 2nd trimester, less than 7 mm in 3rd trimester. Cord: 3-vessel cord has orthotopic insertion. Bladder: Normal in size. Extremities: All 4 extremities identified. IMPRESSION: 1. 21 week 6 day single living IUP corresponding to ultrasound CARLOS of 12/13/2021. 2. Mild right renal pyelectasis; otherwise normal anatomic survey. Short-term follow-up ultrasound is recommended. We strive to produce accurate, complete, and clear reports of imaging services. To assist us in improving patient care, this report was composed using standard report templates and voice recognition software. Therefore, it may contain abnormal punctuation, insertions and/or omissions. Occasional wrong-word or sound-alike substitutions may occur. Though we review the report and make efforts to correct it, we do recommend that the report be read carefully in proper context to recognize any text inaccuracies. Dictated by: Jensen HARTMAN Interpreted: Benton Garza MD on 08/08/2021 at 9:10 Transcribed by: CLOVIS on 08/08/2021 at 9:12 Approved by: Benton Garza M.D. on 08/08/2021 at 10:22
== END ==
PROVIDERS: Family Provider Pediatrics; PCP Registered Nurse Diabetes Educator; Referring Provider Family Medicine; Visit Provider Family Medicine
DX: Z36.89 Encounter for other specified antenatal screening (principal); Z3A.21 21 weeks gestation of pregnancy
CPT/HCPCS: 76811

== ENCOUNTER → 2021-09-12 08:21 | Outpatient (CLI) | payer OTHER, MEDICAID, SELFPAY ==
[2021-06-12 12:56] VITALS: BMI 23.6
--- NOTE | 2021-09-12 08:22 | DI.US.S_ITS ---
PROCEDURE: US OB FOLLOW UP INDICATIONS: FOLLOW UP PYELECTASIS OUTSIDE/PRIOR DATING DATA: Last menstrual period (LMP): Uncertain. First dating scan (date and location): August 08, 2021: [facility]. Estimated date of delivery (CARLOS) from first dating scan: December 13, 2021. The calculations are made using the ultrasound CARLOS of December 13, 2021. TECHNIQUE: Real-time scanning was performed of the fetus, with image documentation. COMPARISON: [facility], US, US OB >= 14 WEEKS FETUS, 08/08/2021, 8:04. FINDINGS: A single living intrauterine gestation is present. Presentation: Vertex. Placenta: Placental position is anterior, without previa. Amniotic fluid index: 21 cm, normal range is 5-24 cm. Single deepest vertical pocket is 5.4 cm. heart rate: 144 beats per minute. Maternal cervical canal: 3.2 cm long. Normal lower limit is 2.5 cm. Estimated gestational age from initial scan: 26 weeks, 6 days. anatomy: Kidneys: No evidence of pelviectasis Maternal: Debris within the urinary bladder. IMPRESSION: 1. Live single intrauterine gestation as detailed above. Dictated by: Deniz Aguilar M.D. on 09/12/2021 at 9:57 Approved by: Deniz Aguilar M.D. on 09/12/2021 at 10:24
== END ==
PROVIDERS: Family Provider Pediatrics; PCP Registered Nurse Diabetes Educator; Referring Provider Family Medicine; Visit Provider Family Medicine
DX: Z34.92 Encounter for supervision of normal pregnancy, unspecified, second trimester (principal); Z3A.24 24 weeks gestation of pregnancy
CPT/HCPCS: 76816

== ENCOUNTER → 2021-10-01 12:20 | Outpatient (CLI) | payer OTHER, MEDICAID, SELFPAY ==
[2021-06-12 12:56] VITALS: BMI 23.6
[2021-10-01 13:30] LABS: Add Manual Diff / Slide Review NO; Basophils Absolute Auto 0 /uL (0-100); Basophils Percent Auto 0.3 % (0-2); Eosinophils Absolute Auto 0 /uL (0-450); Eosinophils Percent Auto 0.6 % (2-4); Hemoglobin 12.8 g/dL (12.0-16.0); Lymphocytes Absolute Auto 1100 /uL (1100-4500); Lymphocytes Percent Auto 16.9 % (25-40); Mean Corpuscular HGB Conc 35.6 % (30-36); Mean Corpuscular Hemoglobin 30.8 PG (26-34); Mean Corpuscular Volume 86.6 fL (80-100); Monocytes Absolute Auto 500 /uL (0-900); Monocytes Percent Auto 6.9 % (3-14); Neutrophils Absolute Auto 5000 /uL (1500-7000); Neutrophils Percent Auto 75.3 % (50-75); Platelet Count 185 X10^3/uL (150-400); Red Blood Cell Count 4.16 X10^6/uL (4.0-5.2); Red Cell Distribution Width 13.7 % (11.6-14.8); White Blood Cell Count 6.6 X10^3/uL (4.5-11.0)
== END ==
PROVIDERS: Family Provider Pediatrics; PCP Registered Nurse Diabetes Educator; Referring Provider Family Medicine; Visit Provider Family Medicine
DX: Z34.90 Encounter for supervision of normal pregnancy, unspecified, unspecified trimester (principal); Z3A.25 25 weeks gestation of pregnancy
CPT/HCPCS: 36415; 85025; 86850; 86900; 86901

== ENCOUNTER → 2021-10-15 10:13 | Outpatient (CLI) | payer OTHER, MEDICAID, SELFPAY ==
[2021-06-12 12:56] VITALS: BMI 23.6
[2021-10-15 13:45] LABS: GTT (PREG) 1 Hour PP 50gm Dose 156 mg/dL (76-139)
== END ==
PROVIDERS: Family Provider Pediatrics; PCP Registered Nurse Diabetes Educator; Referring Provider Family Medicine; Visit Provider Family Medicine
DX: Z3A.25 25 weeks gestation of pregnancy (principal)
CPT/HCPCS: 36415; 82950

== ENCOUNTER → 2021-11-12 07:07 | Outpatient (CLI) | payer OTHER, MEDICAID, SELFPAY ==
[2021-06-12 12:56] VITALS: BMI 23.6
[2021-11-12 08:56] LABS: Glucose Fasting 72 mg/dL (70-100)
[2021-11-12 09:17] LABS: Glucose 1 Hour 181 mg/dL (70-170)
[2021-11-12 09:58] LABS: Glucose 2 Hour 157 mg/dL (70-140)
[2021-11-12 10:36] LABS: Glucose Tol Interpretation INTERPRETATION
[2021-11-12 11:42] LABS: Glucose 3 Hour 119 mg/dL (70-115)
== END ==
PROVIDERS: Family Provider Pediatrics; PCP Registered Nurse Diabetes Educator; Referring Provider Family Medicine; Visit Provider Family Medicine
DX: Z34.90 Encounter for supervision of normal pregnancy, unspecified, unspecified trimester (principal); R73.09 Other abnormal glucose
CPT/HCPCS: 36415; 82951; 82952

== ENCOUNTER → 2021-11-23 11:02 | Outpatient (CLI) | payer OTHER, MEDICAID, SELFPAY ==
[2021-06-12 12:56] VITALS: BMI 23.6
--- NOTE | 2021-11-23 15:49 | DIAB.GDA ---
Addendum entered by Danielle Matthews 12/04/21 14:30: 12/04/21: called pt and discussed recent BG. All in goal and seems to be eating adequately. States her insurance will not cover BG supplies. Discussed a plan around this. Call insurance vs message provider vs pay out of pocket at [facility]. She agreed to call with any questions or concerns. Addendum entered by Danielle Matthews 11/30/21 14:37: 11/30/21: LVM for pt to call back for check-in. Per provider notes, BG seem to be going well. Addendum entered by Danielle Matthews 11/23/21 16:15: Message patient that a 45g carb rec for lunch and dinner is likely the best plan. Also sent her the handout reviewed in visit today. Original Note: Initial Gestational Diabetes Assessment Name: Armond Bernard Date: 11/23/21 Time: 1105a-1205p Dx: Gestational Diabetes Provider: [place] CARLOS: 12/18/21 Weeks: 36 Armond presents today for newly dx GDM visit. States she has been trying to focus on eating healthy, but feels she needs more guidance. She is already quite advanced into . Today we will review diet, SMBG, and recs. Will call her for follow-up in one week. +FH father with DM. She works as an MA. Currently on leave. Endorses higher carb intake during , ie fast food of >100g CHO in a meal (2 roman burritos and taco). Has made some changes to diet, such as cutting out fast food and choosing lower sugar beverages. Has concerns about impact on baby, specifically size. Diet Recall: 9-10a: smoothie ; cheerios x 2c with milk ; eggs and low sugar OJ (10-45g CHO) 12p: sandwich ; fruit with apple sauce (30-40g CHO) 4p: protein and veg +/- 1c rice (0-45g CHO) 6-7p: ice cream x 1c (30-40g CHO) Anthropometrics: Wt: 172# last ob visit on 11/14 Prepregnancy wt: 145# Wt changes: +27# Physical Activity: walking 20 min 2-3 days per week Self-Monitoring Blood Glucose: Just started SMBG: FBG and 2hr pc. FBG in range. some after meal elevations, 2/3 after breakfast readings, whitney with cheerio breakfast. 3/5 elevated pc lunch and 1/5 elevated pc dinner. Date Pre Post Pre Post Pre Post HS 11/17 129 111 11/08 69 95 125 11/19 77 143 92 11/20 72 91 118 11/21 81 125 132 11/22 78 146 109 99 11/23 90 Diabetes Medications: None Pertinent Labs: OGTT: 72, 181H, 157H, 119H Intervention: This participant was very receptive. Provided appropriate educational handouts. Discussed the following topics: GDM pathophysiology and impact of hyperglycemia on mom and baby Discussing size concern details with OB, did discuss why hyperglycemia causes this. Risk for T2DM for mom and baby in the future Ways to reduce risk T2DM Plate Method, meal timing, carb counting, pairing macronutrients and spreading out CHO for better BG management Blood glucose goals (FBG: <95 and 2 hour <120 mg/dL); importance of checking 4x per day (FBG and pc) Impact of macronutrients on blood glucose Recommended servings for carbohydrates at meals and snacks Brainstormed appropriate meal plan based on her food preferences Role of physical activity and following provider guidelines for safety recs: OGTT 6-12weeks, HgA1c q 1-3 years, nutrition and physical activity recs, benefits/resources Goals: Add protein to meals/snacks Read food labels for net carbs Walk daily after meals Try a new breakfast Follow-up: ALLEN WEINBERG follow-up in one week via phone. Encouraged her to call my office sooner prn. Seems likely that she can manage her pc readings with diet and exercise given readings provided today. Will check-in next week. Not scheduling a 1:1 in person given how late she is in . Danielle Matthews RDN, LENARD Certified Diabetes Care and Audiometric Technician T: [phone] F: [phone] [email or web address] Thank you for this referral
== END ==
PROVIDERS: Family Provider Pediatrics; PCP Registered Nurse Diabetes Educator; Referring Provider Family Medicine; Visit Provider Family Medicine
DX: O24.410 Gestational diabetes mellitus in pregnancy, diet controlled (principal); Z3A.36 36 weeks gestation of pregnancy
CPT/HCPCS: G0108

== ENCOUNTER → 2021-11-23 16:10 | Outpatient (CLI) | payer OTHER, MEDICAID, SELFPAY ==
[2021-06-12 12:56] VITALS: BMI 23.6
== END ==
PROVIDERS: Family Provider Pediatrics; PCP Registered Nurse Diabetes Educator; Visit Provider Family Medicine
DX: Z3A.36 36 weeks gestation of pregnancy (principal)
CPT/HCPCS: 87081; 87653

== ENCOUNTER 2021-12-10 01:57 | Inpatient (IN) | payer OTHER, MEDICAID, SELFPAY ==
[2021-06-12 12:56] VITALS: BMI 23.6
[2021-12-10 03:07] VITALS: BP 135/82
[2021-12-10 03:49] LABS: COVID19 -Nasal RAPID Negative (Negative)
[2021-12-10 04:10] LABS: Add Manual Diff / Slide Review NO; Basophils Absolute Auto 0 /uL (0-100); Basophils Percent Auto 0.2 % (0-2); Eosinophils Absolute Auto 0 /uL (0-450); Eosinophils Percent Auto 0.2 % (2-4); Hematocrit 38.8 % (36-46); Hemoglobin 13.8 g/dL (12.0-16.0); Lymphocytes Absolute Auto 1300 /uL (1100-4500); Lymphocytes Percent Auto 12.9 % (25-40); Mean Corpuscular HGB Conc 35.5 % (30-36); Mean Corpuscular Volume 87.3 fL (80-100); Monocytes Absolute Auto 700 /uL (0-900); Monocytes Percent Auto 6.3 % (3-14); Neutrophils Absolute Auto 8400 /uL (1500-7000); Neutrophils Percent Auto 80.4 % (50-75); Platelet Count 157 X10^3/uL (150-400); Red Blood Cell Count 4.45 X10^6/uL (4.0-5.2); Red Cell Distribution Width 12.9 % (11.6-14.8); White Blood Cell Count 10.4 X10^3/uL (4.5-11.0)
[2021-12-10] MEDS: FENT 2MCG/ML BUPIV 0.125% EPI 200 MCG/100 ML PLAST..BAG 6 MCG EPIDURAL ×2 (08:05→14:27)
[2021-12-10] MEDS: LACTATED RINGERS 1,000 ML 100 ML IV ×2 (08:06→15:38)
--- NOTE | 2021-12-10 09:59 | P.PCN_ITS ---
Regional Block Pre-procedure Procedure: Continuous Lumbar Epidural for L&D Attending OB provider: Mally Hugo PMH/ROS narrative: term labor, GDM A1, diet controlled. No other complications. ASA Class: II Labs: Hct 38.8 % (36-46) 12/10/21 03:38 Plt Count 157 X10^3/uL (150-400) 12/10/21 03:38 Medications: Current Medications Generic Name Dose Route Start Last Admin Trade Name Freq PRN Reason Stop Dose Admin Calcium Carbonate 1,000 mg 12/10/21 02:58 Calcium Carbonate 500 Mg Tab PO Q2HR PRN Dyspepsia Carboprost Tromethamine 250 mcg 12/10/21 02:58 Carboprost 250 Mcg/Ml Ampul IM Q90M PRN Bleeding Diphenhydramine HCl 25 mg 12/10/21 09:58 Diphenhydramine 50 Mg/Ml Vial IV Q10M PRN Pruritis Fentanyl 50 mcg 12/10/21 02:58 Fentanyl 100 Mcg/2 Ml Inj IV Q1H PRN Pain, Moderate (4-6) Lactated Ringer's 1,000 mls @ 100 mls/hr 12/10/21 03:00 12/10/21 08:06 Lactated Ringers IV 100 mls/hr CONT JOESPH Administration Oxytocin/Lactated Ringer's 30 unit in 500 mls @ 200 mls/hr 12/10/21 02:58 Oxytocin Premix IV CONT PRN Bleeding Protocol Tranexamic Acid 1,000 mg/ 100 mls @ 200 mls/hr 12/10/21 02:58 Sodium Chloride IV NOW PRN Bleeding FENT 2MCG/ML BUPIV 0.125% EPI 200 mcg in 100 mls @ 6 mls/hr 12/10/21 10:00 Fentanyl/Bupiv/Ns 2mcg/Ml - 0.125% EPIDURAL CONT JOESPH Methylergonovine Maleate 0.2 mg 12/10/21 02:58 Methylergonovine 0.2 Mg Tablet PO Q6HR PRN Heavy Bleeding Methylergonovine Maleate 0.2 mg 12/10/21 02:58 Methylergonovine 0.2 Mg/Ml Vial IM NOW PRN Bleeding Misoprostol 800 mcg 12/10/21 02:58 Misoprostol 200 Mcg Tablet AR NOW PRN Bleeding Misoprostol 1,000 mcg 12/10/21 02:58 Misoprostol 200 Mcg Tablet AR NOW PRN Bleeding Misoprostol 400 mcg 12/10/21 02:58 Misoprostol 200 Mcg Tablet SL NOW PRN Bleeding Nalbuphine HCl 2.5 mg 12/10/21 09:58 Nalbuphine 20 Mg/Ml Ampul IV Q10M PRN Pruritis Naloxone HCl 0.2 mg 12/10/21 02:58 Naloxone 0.4 Mg/Ml Vial IV Q2MIN PRN Opiate Reversal Ondansetron HCl 4 mg 12/10/21 02:58 Ondansetron 4 Mg/2 Ml Inj IV Q4HR PRN Nausea And Vomiting Oxytocin 10 unit 12/10/21 02:58 Oxytocin 10 Unit/Ml Vial IM NOW PRN Bleeding Allergies: Allergies Allergy/AdvReac Type Severity Reaction Status Date / Time No Known Drug Allergies Allergy Verified 12/10/21 03:06 Procedure Insertion date: 12/10/21 Insertion time: 07:52 Prep/Local: betadine x3 and 1% lidocaine Interspace: L3-4 Patient position: sitting Needle: 18 gauge SimpleTherapytead (CSE: 27g Pencan through Hustead. Clear CSF, 1mL 0.25% bupiv MPF.) Loss of resistance with: saline KASSIE at (cm): 4 Catheter placed at SKIN (cm): 9 Catheter in SPACE (cm): 5 Insertion: No CSF, No Blood, No Paresthesia with insertion, No Paresthesia with injection and No Test dose reaction Initial Medications TEST DOSE time: 07:55 TEST DOSE: 1.5% lidocaine with epinephrine 1:200k (mL): 3 BOLUS DOSE time: 08:11 BOLUS DOSE (mL): 5 BOLUS DOSE med: other (infusate) Infusion INFUSION: 0.125% bupivacaine and with fentanyl 2 mcg/mL Initial rate (mL/hr): 6 Subsequent interventions: 12:30 rate to 8ml/h, hourly max to 23mL Post-procedure Anesthesia time START: 07:45 Anesthesia time END: 17:30 Post-procedure Anesthesia Assessment: Yes CV function: HR/BP stable, Yes Resp function: RR/sat/airway adequate, Yes Mental status appropriate and No Anesthesia complications
[2021-12-10] MEDS: CALCIUM CARBONATE 500 MG TAB 1000 MG PO (11:19)
[2021-12-10] MEDS: OXYTOCIN PREMIX 30 UNIT/500 ML PLAST..BAG IV (13:33)
--- NOTE | 2021-12-10 15:30 | PM.OBHP.IH.1 ---
OB HPI Date/Time Date of admission: 12/10/21 Date Patient Seen: 12/10/21 Time Patient Seen: 07:45 History of Present Condition Chief complaint: pain CARLOS Calculator Estimated Delivery Date Method Current WG Current Estimate 12/18/21 Manual 38w 6d Final CARLOS - KHADAR Other Estimates 12/18/21 LMP (Certain) 38w 6d 12/17/21 Ultrasound #1 39w 0d Estimated Gestational Age (weeks): 38w6d : 1 Para: 0 Narrative: Pt is a 26yo at 38w6d who presented with LOF. Pt reports feeling leaking fluid around 12:45am. She has had mild vaginal bleeding since then as well. She reports contractions starting shortly after the fluid leaked. She is feeling her baby move regularly. The pts was complicated by GDMA1, diagnosed at 35wks. She had excellent control with dietary changes. Anatomy scan also showed renal pyelectasis, however this had resolved on repeat ultrasound. care: good care, initiated at week # (8) and pounds weight gain (32) Dating criteria OB: LMP confirmed by 1st trimester US Ultrasounds: normal 1st trimester US and abnormal US findings Abnormal ultrasound findings: renal pyelectasis on anatomy scan, resolved on repeat ultrasound Obstetrical complications: gestational diabetes (A1) Medical complications OB: none Preadmission Labs Last OB Lab Results: Blood Type O Negative 12/10/21 03:38 12/10/21 Antibody Screen Negative 12/10/21 03:38 12/10/21 Hematocrit 38.8 % (36-46) 12/10/21 03:38 12/10/21 Hemoglobin 13.8 g/dL (12.0-16.0) 12/10/21 03:38 12/10/21 Hepatitis B Surface Antigen Negative s/c (NEGATIVE) 07/10/21 13:19 07/10/21 Hepatitis C Antibody Negative s/c (NEGATIVE) 07/10/21 13:19 07/10/21 Rubella Antibody 17.6 IU/mL (>15) 07/10/21 13:19 07/10/21 Varicella-Zoster IgG Antibody >4000 index (Immune >165) 04/18/21 16:12 04/18/21 Glucose 1 Hour 156 mg/dL (76-139) H 10/15/21 11:37 10/15/21 Glucose Tolerance Testing: Fasting (72), 1 hr (181), 2 hr (157) and 3 hr (119) -: Urine: negative Genetic Screens: Quad screen: Normal External Labs -: Urine: negative Evaluation Evaluation Baseline heart rate: 140 Variability: Moderate (11-25) monitor accelerations: Present Monitor Decelerations: Absent Contraction Frequency (minutes): 4 Status: Category l Dilation (cm): 2 Effacement (%): 100 Dilation: 1-2 cm Effacement: >/=80% station: 0 Position of cervix: anterior Consistency: soft Patel score: 10 [facility] Medical History (Updated 12/10/21 @ 04:37 by Kylah Graham RN) History of being hospitalized (~2018) HSV-1 (herpes simplex virus 1) infection (~02/2020) No pertinent past medical history Surgical History No pertinent past surgical history S/P breast biopsy, right (~2017) Family History (Updated 05/08/21 @ 10:56 by Kimberly Hale RN) Father Diabetes mellitus History of quadruple bypass Mother Healthy adult Brother Healthy adult Sister Healthy adult Grandfather Old age Grandmother No problems noted. Grandfather No problems noted. Grandmother No problems noted. Social History marital status: unmarried,living together number of children: 0 household members: significant other lives independently: Yes caregiver/support person: Yes pets and animals: Yes (X 1 cat/kitten : indoor only. Discussed. Aware not.) education level: college occupational status: employed current occupational exposures/hazards: Yes Previous occupational history: Caregiving nights currently. special fady needs: No Smoking Status: Never smoker second hand exposure: No alcohol intake: former substance use type: does not use Type(s) of exercise: walking and irregular exercise Meds Home Medications and Allergies Home Medications Medication Instructions Recorded Confirmed Type valacyclovir 500 mg tablet 500 mg PO BID #30 tab 03/16/21 12/10/21 Rx (Valtrex) prenat.vits,caesar,[id number] 1 tab PO DAILY 05/08/21 12/07/21 History blood sugar diagnostic (Blood #100 ea 11/14/21 12/07/21 Rx Glucose Test) lancets (Lancets,Thin) #200 ea 11/14/21 12/07/21 Rx blood-glucose meter #1 ea 11/16/21 12/07/21 Rx Allergies Allergy/AdvReac Type Severity Reaction Status Date / Time No Known Drug Allergies Allergy Verified 12/10/21 03:06 OB Exam Narrative Exam Narrative: Gen: NAD, sitting comfortably in bed, appears well CV: RRR, no murmurs Resp: clear to auscultation bilaterally Abd: soft, nontender, gravid Ext: no edema Objective Labs Result Diagrams: 12/10/21 03:38 Labs: Laboratory Results - last 24 hr 12/10/21 12/10/21 12/10/21 03:30 03:38 03:38 WBC 10.4 RBC 4.45 Hgb 13.8 Hct 38.8 MCV 87.3 MCH 31.0 MCHC 35.5 RDW 12.9 Plt Count 157 Neut % (Auto) 80.4 H Lymph % (Auto) 12.9 L [place] % (Auto) 6.3 Eos % (Auto) 0.2 L Baso % (Auto) 0.2 Neut # (Auto) 8400 H Lymph # (Auto) 1300 [place] # (Auto) 700 Eos # (Auto) 0 Baso # (Auto) 0 SARS-CoV-2 (PCR) Negative Blood Type O Negative Antibody Screen Negative Assessment and Plan Assessment and Plan Assessment and Plan narrative: 26yo at 38w6d here with SROM at home, in early labor. complicated by GDMA1 with excellent blood sugar control. Rh negative, GBS negative. Rhogam received 10/08/21. - Expectant management, anticipate - FHT reassuring - GBS negative, no prophylaxis indicated - Epidural in place for pain control - Will monitor for cervical change, if no significant change in the next 2 hours, plan to initiate pitocin
--- NOTE | 2021-12-10 15:39 | PM.OBPNLAB ---
Date/Time Date Patient Seen: 12/10/21 Time Patient Seen: 15:00 Pain Control Pain control: epidural Pelvic Exam Dilation (cm): 8 Effacement (%): 100 station: 0 Amniotic membrane status: Ruptured Contractions Monitor mode: External Pitocin rate (mU/min): 2 Contraction frequency (min): 2 Status status: Category l Heart Rate Baseline: 140 Monitor Accelerations: Present Monitor Decelerations: Absent Monitor Variability: Moderate Assessment and Plan Comments: 26yo at 38w6d here with SROM at home, in early labor.? complicated by GDMA1 with excellent blood sugar control.? Rh negative, GBS negative.? Rhogam received 10/08/21. Pitocin initiated due to spacing of contractions. - Expectant management, anticipate - FHT reassuring - GBS negative, no prophylaxis indicated - Epidural in place for pain control - Continue pitocin, titrate as tolerated
--- NOTE | 2021-12-10 17:59 | PM.OBPRVD ---
Labor & Delivery Delivery date: 12/10/21 Intrapartal Events: None Cervical ripening method: none Induction method: none Delivery augmentation: pitocin Delivery monitor: external FHT Route of delivery: Episiotomy description: None L&D Laceration Description: Perineal - 2nd Degree Delivery repair: chromic Estimated blood loss (mL): 100 Anesthesia Type: Epidural Complications: None Narrative: PROCEDURE: at 38w6d presented in early labor with SROM and was admitted to Labor and Delivery. The patient progressed through the 1st stage over 16 hours. Pain was controlled with an epidural. Low dose pitocin was initiate due to spacing of contractions. The patient progressed through the 2nd stage over 1 hour and delivered a viable male with APGARs 9/9 at 17:30 via without complications. The cord was cut and clamped after it stopped pulsating. The perineum and vagina were inspected with 2nd degree perineal laceration repaired with 2-O Vicryl. PREPROCEDURE DIAGNOSIS: Intrauterine at 38w6d GBS negative RH negative POSTPROCEDURE DIAGNOSIS: Intrauterine at 38w6d, delivered Same as preprocedure [place] Baby 1: Infant gender: Male Presentation: vertex Position: Left Occiput Anterior Placenta delivery description: Spontaneous Cord Vessel Description: 3 Vessels score (1 min): 9 score (5 min): 9 weight: 7 lb 7.967 oz Plan for aftercare: Routine care
[2021-12-10] MEDS: OXYCODONE IR 5 MG TABLET PO (22:35)
[2021-12-10] MEDS: IBUPROFEN 600 MG TABLET PO (22:36)
[2021-12-10] MEDS: DERMOPLAST SPRAY 20% 60 ML 1 SPRAY TOP (22:36)
[2021-12-11] MEDS: ACETAMINOPHEN 325 MG TABLET 650 MG PO ×2 (04:15→14:26)
[2021-12-11] MEDS: LANOLIN OINT 7 GM 1 APPLIC TOP (04:17)
[2021-12-11] MEDS: OXYCODONE IR 5 MG TABLET PO (07:44)
[2021-12-11] MEDS: IBUPROFEN 600 MG TABLET PO ×2 (07:45→14:26)
--- NOTE | 2021-12-11 09:35 | PM.OBDS.1 ---
Discharge Providers Provider Date of admission: 12/10/21 01:57 Discharge Date: 12/11/21 Primary care physician: CHEL Sultana Consults: 12/10/21 03:03 Consult to Anesthesiology Urgent Comment: Consulting Provider: Anesthesiologist Reason for consultation: labor 12/11/21 17:55 Consult to Chemical Compounder Helper Routine Comment: Discharge provider: Mally Hugo MD Summary Hospital Course Date Patient Seen: 12/11/21 Time Patient Seen: 07:50 Diagnoses: 38w6d gestation GBS negative Rh negative Gestational diabetes Hospital Course: The pt presented in early labor with SROM at home. She received an epidural for pain control. Pitocin was initiated due to spacing of her contractions. She progressed to complete and had an of a viable baby boy on 12/10/21. A 2nd degree perineal laceration was then repaired. , there were no complications. At the time of discharge she was voiding, ambulating, and passing flatus without difficulty. Her lochia was decreasing appropriately. She was with good latch using the nipple shield. Her pain was well controlled. She received Rhogam. She will f/u in 6 weeks for check. She is undecided regarding contraception. Peripartum Data Delivery Method: Natural Vaginal Laceration Description: Perineal - 2nd Degree Episiotomy description: None Procedures: Spontaneous vaginal delivery complications: none [place] 1: Gender: Male Disposition of : home Discharge Diagnosis (1) Spontaneous vaginal delivery: Status: Acute Status at Discharge Cognitive/behavioral status at discharge: oriented Functional status at discharge: independent ambulation Overall status at discharge: patient is progressing back to baseline Time Spent with Patient Time attestation: Total time spent providing and/or coordinating discharge services: Objective Labs Result Diagrams: 12/10/21 03:38 Labs: Laboratory Results - last 24 hr 12/11/21 05:30 Maternal Bleed Negative Exam Narrative Exam Narrative: Gen: NAD, sitting comfortably in bed, appears well CV: RRR, no murmurs Resp: clear to auscultation bilaterally Abd: soft, appropriately tender, fundus firm and below the umbilicus, nondistended Ext: no edema Discharge Plan Discharge Plan Patient Disposition: Home Discharge orders & Medications Prescriptions: New acetaminophen 325 mg Tablet 650 mg PO Q6HR PRN (Reason: Pain, Mild (1-3)) Qty: 30 0RF docusate sodium 100 mg Capsule 100 mg PO DAILY Qty: 30 0RF ibuprofen 600 mg Tablet 600 mg PO Q6HR PRN (Reason: Pain, Mild (1-3)) Qty: 30 0RF Continued prenat.vits,caesar,[id number] Tablet 1 tab PO DAILY 0RF Discontinued valacyclovir [Valtrex] 500 mg tablet 500 mg PO BID Qty: 30 3RF Label Comments: Per pt, end of October/beginning of November Rx Instructions: 500 mg twice daily for 3 days at first sign of outbreak (supply for multiple outbreaks) (DME) Blood Glucose Test Strip See Rx Instructions .Route Qty: 100 11RF Rx Instructions: test QID- fasting and two hours post prandial (DME) lancets [Lancets,Thin] Misc See Rx Instructions .Route Qty: 200 8RF Rx Instructions: test QID- fasting and two hours post prandial (DME) blood-glucose meter Misc See Rx Instructions .Route Qty: 1 0RF Rx Instructions: test QID- fasting and two hours post prandial Follow up/Referrals: Mally Hugo MD [Physician] - 6 Weeks Donal Bella ARNP [Primary Care Provider] - Visit Report/Discharge Packet Visit Report Forms: Patient Portal/API, Stroke Signs & Symptoms Discharge Data Primary Care Provider: Donal Bella
[2021-12-11 14:11] VITALS: BP 106/80; PULSE 67; RESP 16; TEMP 36.6
[2021-12-11] MEDS: RHO(D) IMMUNE GLOBULIN 1,500 UNIT SYRINGE 1500 UNIT IM (16:12)
== END 2021-12-11 16:40 | disposition home or self-care (01) | DRG 560 ==
PROVIDERS: Admitting Provider Obstetrics & Gynecology; Family Provider Pediatrics; PCP Registered Nurse Diabetes Educator; Referring Provider Obstetrics & Gynecology; Visit Provider Obstetrics & Gynecology
DX: O24.420 Gestational diabetes mellitus in childbirth, diet controlled (principal); O42.02 Full-term premature rupture of membranes, onset of labor within 24 hours of rupture; Z3A.38 38 weeks gestation of pregnancy; Z37.0 Single live birth; O98.32 Other infections with a predominantly sexual mode of transmission complicating childbirth; B00.9 Herpesviral infection, unspecified; O70.1 Second degree perineal laceration during delivery; Z20.822 Contact with and (suspected) exposure to COVID-19
CPT/HCPCS: 01967; 36415; 59025; 59050; 59409; 84112; 85025; 85461; 86850; 86900; 86901; 87635; C9803; G0379; J2590; J2790

== ENCOUNTER → 2022-01-22 16:29 | Outpatient (CLI) | payer OTHER, MEDICAID, SELFPAY ==
[2021-06-12 12:56] VITALS: BMI 23.6
== END ==
PROVIDERS: Family Provider Pediatrics; PCP Registered Nurse Diabetes Educator; Visit Provider Family Medicine
DX: N89.8 Other specified noninflammatory disorders of vagina (principal); R39.89 Other symptoms and signs involving the genitourinary system
CPT/HCPCS: 87070; 87205; 87210